=== PATIENT | female | born 1980 | race American Indian/Alaskan Native ===

== ENCOUNTER 2017-02-15 11:31 | Emergency (ER) | payer SELFPAY ==
[2017-02-15 11:43] VITALS: BP 133/81
== END 2017-02-15 16:05 | disposition left against medical advice (07) ==
LOC: ED 11:31
DX: R51 Headache (principal); Z53.21 Procedure and treatment not carried out due to patient leaving prior to being seen by health care provider

== ENCOUNTER 2017-05-18 10:59 | Emergency (ER) | payer MEDICAID ==
--- NOTE | 2017-05-18 11:14 | Emergency Department Report ---
Chief Complaint: Urogenital-Female Stated Complaint: TUBAL/NOW POSITIVE PREG TEST Time Seen by Provider: 05/18/17 11:11 - HPI History of Present Illness: PT states she has had tubal ligation. PT states she has not had cycle since March. PT took a positive home test. - ROS Review of Systems: - abd pain - vaginal bleeding - Exam Physical Exam: pt looks well, non toxic. no acute distress in triage. MSE screening note: Focused history and physical exam performed. Due to findings the following was ordered: labs and us ED Disposition for MSE Condition: Stable
[2017-05-18 11:48] LABS: Basophils % (Auto) 1.1 % (0.0-1.8); Eosinophils % (Auto) 1.6 % (0.0-4.3); Hematocrit 36.9 % (30.3-42.9); Hemoglobin 11.8 gm/dl (10.1-14.3); Mean Corpuscular HGB Conc 32 % (30-34); Mean Corpuscular Hemoglobin 26 pg (28-32); Mean Corpuscular Volume 81 fl (79-97); Platelet Count 211 K/mm3 (140-440); Red Blood Count 4.54 M/mm3 (3.65-5.03); Red Cell Distribution Width 15.2 % (13.2-15.2); White Blood Count 4.8 K/mm3 (4.5-11.0)
[2017-05-18 11:54] LABS: Alanine Aminotransferase 10 units/L (7-56); Albumin 4.2 g/dL (3.9-5); Albumin/Globulin Ratio 1.2 %; Alkaline Phosphatase 59 units/L (35-129); Anion Gap 15 mmol/L; Blood Urea Nitrogen 6 mg/dL (7-17); Calcium 8.6 mg/dL (8.4-10.2); Carbon Dioxide 26 mmol/L (22-30); Chloride 100.5 mmol/L (98-107); Glucose 119 mg/dL (65-100); Potassium 3.7 mmol/L (3.6-5.0); Sodium 138 mmol/L (137-145); Total Protein 7.6 g/dL (6.3-8.2)
[2017-05-18 12:34] LABS: Bilirubin,Urine NEG (Negative); Blood,Urine NEG (Negative); Ketones,Urine NEG (Negative); Leukocyte Esterase,Urine NEG (Negative); Mucus,Urine 1+ /HPF; Nitrite,Urine NEG (Negative); Protein,Urine <15 mg/dL mg/dL (Negative); RBC,Urine < 1.0 /HPF (0.0-6.0); Urobilinogen,Urine < 2.0 mg/dL (<2.0); WBC,Urine < 1.0 /HPF (0.0-6.0)
--- NOTE | 2017-05-18 15:48 | Ultrasound Report ---
Transabdominal and transvaginal pelvic ultrasound. History: Pelvic pain. The patient's serum hCG at the time of this study a 17.08. The patient has a history of tubal ligation. Findings: The uterus is normal in size and configuration. There is no evidence of intrauterine . The endometrial echo measures 11 mm. There is a 1.5 cm cyst within the right ovary. There is a complex lesion in the left ovary measuring 2 cm in diameter. There is no fluid within the cul-de-sac. Impression: 1. No evidence of IUP. 2. 2 cm diameter complex lesion in the left ovary. 3. 1.5 cm right ovarian cyst.
--- NOTE | 2017-05-18 20:37 | Emergency Department Report ---
ED Female HPI - General Chief complaint: Urogenital-Female Stated complaint: TUBAL/NOW POSITIVE PREG TEST Time Seen by Provider: 05/18/17 11:11 Source: patient Mode of arrival: Ambulatory Limitations: No Limitations - History of Present Illness Initial comments: 36-year-old female past medical history tubal ligation, miscarriages, migraines presents with complaint of possible . Last menstrual period was 2016. Patient gravity history 1 miscarriage last year and currently . Patient denies fevers chills nausea vomiting states that she has had some vaginal spotting since her ultrasound this afternoon in the emergency department. Patient is awake alert and oriented 3 nontoxic appearing. Patient states that she had a positive urine test at home and is concerned that she may be now despite having had a tubal ligation 9 years ago. Patient states she had similar scenario last year where she had a miscarriage after becoming within the first 6 weeks. Patient states she tried to go see her [facility] but they were unavailable this afternoon. Patient states that today she had some intermittent crampiness since the ultrasound but not before that.. Complaint: vaginal discharge, possible STD Are you Now?: Yes Last Menstrual Period: 04/05/17 EDC: 01/10/18 - Related Data Sexually active: Yes : 7 Para: 5 Previous Rx's Medication Instructions Recorded Last Taken Type Acetaminophen/Codeine [Tylenol #3] 1 tab PO Q6H PRN #14 tab 01/11/14 Unknown Rx Ibuprofen [Motrin 800 MG tab] 800 mg PO Q8H PRN #30 tablet 01/11/14 Unknown Rx Cephalexin [Keflex] 500 mg PO QID #28 capsule 01/12/14 Unknown Rx metroNIDAZOLE [Flagyl TAB] 500 mg PO Q12HR #14 tab 05/18/17 Unknown Rx Allergies Allergy/AdvReac Type Severity Reaction Status Date / Time acetaminophen [From Percocet] Allergy Vomiting Verified 01/11/14 15:47 hydrocodone bitartrate Allergy Vomiting Verified 01/11/14 15:47 [From Vicodin] oxycodone HCl [From Percocet] Allergy Vomiting Verified 01/11/14 15:47 ED Review of Systems ROS: Stated complaint: TUBAL/NOW POSITIVE PREG TEST Other details as noted in HPI Constitutional: denies: chills, fever Eyes: denies: eye pain, eye discharge, vision change ENT: denies: ear pain, throat pain Respiratory: denies: cough, shortness of breath, wheezing Cardiovascular: denies: chest pain, palpitations Endocrine: no symptoms reported Gastrointestinal: denies: abdominal pain, nausea, diarrhea Genitourinary: denies: urgency, dysuria, discharge Musculoskeletal: denies: back pain, joint swelling, arthralgia Skin: denies: rash, lesions Neurological: denies: headache, weakness, paresthesias Psychiatric: denies: anxiety, depression Hematological/Lymphatic: denies: easy bleeding, easy bruising ED Past Medical Hx - Past Medical History Hx Headaches / Migraines: Yes (migraines) Hx Psychiatric Treatment: Yes (anxiety) Additional medical history: right ovarian cyst, scoliosis - Surgical History Additional Surgical History: tubal ligation, lump removed from left breast - Social History Smoking Status: Never Smoker Substance Use Type: None - Medications Home Medications: Home Medications Medication Instructions Recorded Confirmed Last Taken Type Acetaminophen/Codeine [Tylenol #3] 1 tab PO Q6H PRN #14 tab 01/11/14 Unknown Rx Ibuprofen [Motrin 800 MG tab] 800 mg PO Q8H PRN #30 tablet 01/11/14 Unknown Rx Cephalexin [Keflex] 500 mg PO QID #28 capsule 01/12/14 Unknown Rx metroNIDAZOLE [Flagyl TAB] 500 mg PO Q12HR #14 tab 05/18/17 Unknown Rx ED Physical Exam - General Limitations: No Limitations General appearance: alert, in no apparent distress - Head Head exam: Present: atraumatic, normocephalic - Eye Eye exam: Present: normal appearance, PERRL, EOMI - ENT ENT exam: Present: mucous membranes moist - Neck Neck exam: Present: normal inspection - Respiratory Respiratory exam: Present: normal lung sounds bilaterally. Absent: respiratory distress - Cardiovascular Cardiovascular Exam: Present: regular rate, normal rhythm. Absent: systolic murmur, diastolic murmur, rubs, gallop - GI/Abdominal GI/Abdominal exam: Present: soft (abdomen soft nontender nondistended all 4 quadrants and suprapubic), normal bowel sounds - External exam: Present: normal external exam Speculum exam: Present: vaginal bleeding Bi-manual exam: Present: normal bi-manual exam - Extremities Exam Extremities exam: Present: normal inspection - Back Exam Back exam: Present: normal inspection - Neurological Exam Neurological exam: Present: alert, oriented X3 - Psychiatric Psychiatric exam: Present: normal affect, normal mood - Skin Skin exam: Present: warm, dry, intact, normal color. Absent: rash ED Course Vital Signs 05/18/17 11:07 Temperature 98 F Pulse Rate 84 Respiratory 18 Rate Blood Pressure 124/72 O2 Sat by Pulse 100 Oximetry ED Medical Decision Making - Lab Data Result diagrams: 05/18/17 11:16 05/18/17 11:16 - Medical Decision Making A/P: Early versus early ectopic 1-ultrasound shows right-sided ovarian cyst but no ectopic , no overt masses 2-labs unremarkable pelvic exam shows some vaginal spotting but no significant pain on manual exam 3-scars to with [facility] [employer] superintendent Dr. Madelyn Rodríguez. Dr. Sam Vicente's colleague. As per Dr. Rodríguez I will give patient ectopic precautions and refer her back to clinic for repeat ultrasound and hCG in 48 hours. I informed the patient of this plan and she agreed to follow up in clinic or to return to the ED if necessary for repeat ultrasound in 48-72 hours. I advised patient that should she begin to experience vaginal hemorrhage severe abdominal pain fevers and chills or severe nausea and vomiting to return to the emergency room immediately as this may represent a clinical ectopic . Patient stated she understood my instructions clearly. her spouse was present for conversation. 4-discussed the case with Dr. Ruiz before discharge 5- pt advised to engage in pelvic rest, will tx empirically for BV and wet prep is + Critical care attestation.: If time is entered above; I have spent that time in minutes in the direct care of this critically ill patient, excluding procedure time. ED Disposition Clinical Impression: Qualifiers: Weeks of gestation: less than 8 weeks Qualified Code(s): Z3A.01 - Less than 8 weeks gestation of Disposition: -01 TO HOME OR SELFCARE Is pt being admited?: No Does the pt Need Aspirin: No Condition: Stable Instructions: Ectopic (ED), Spontaneous Miscarriage (ED), Threatened Miscarriage (ED), (ED) Prescriptions: metroNIDAZOLE [Flagyl TAB] 500 mg PO Q12HR #14 tab Referrals: DANIEL NICHOLAS MD [Staff Physician] - 3-5 Days [facility] [Provider Group] - 3-5 Days Forms: Accompanied Note, Work/School Release Form(ED)
[2017-05-18 21:49] VITALS: BP 128/82
== END 2017-05-18 21:48 | disposition home or self-care (01) ==
LOC: ED 10:59
DX: O26.891 Other specified pregnancy related conditions, first trimester (principal); N89.8 Other specified noninflammatory disorders of vagina; Z3A.01 Less than 8 weeks gestation of pregnancy; G43.909 Migraine, unspecified, not intractable, without status migrainosus; F41.9 Anxiety disorder, unspecified; Z88.8 Allergy status to other drugs, medicaments and biological substances; N83.201 Unspecified ovarian cyst, right side
CPT/HCPCS: 36415; 76801; 76817; 80053; 81001; 84702; 85025; 86900; 86901; 87210; 87591

== ENCOUNTER 2017-05-19 10:18 | Emergency (ER) | payer MEDICAID ==
[2017-05-19 11:50] LABS: Basophils % (Auto) 1.2 % (0.0-1.8); Hematocrit 37.7 % (30.3-42.9); Hemoglobin 12.2 gm/dl (10.1-14.3); Mean Corpuscular HGB Conc 32 % (30-34); Mean Corpuscular Hemoglobin 26 pg (28-32); Mean Corpuscular Volume 81 fl (79-97); Platelet Count 216 K/mm3 (140-440); Red Blood Count 4.64 M/mm3 (3.65-5.03); Red Cell Distribution Width 14.9 % (13.2-15.2); White Blood Count 7.4 K/mm3 (4.5-11.0)
[2017-05-19 12:28] LABS: Alanine Aminotransferase 10 units/L (7-56); Albumin 4.5 g/dL (3.9-5); Albumin/Globulin Ratio 1.2 %; Alkaline Phosphatase 67 units/L (35-129); Anion Gap 17 mmol/L; Blood Urea Nitrogen 7 mg/dL (7-17); Carbon Dioxide 27 mmol/L (22-30); Glucose 90 mg/dL (65-100); Lipase 36 units/L (13-60); Potassium 3.7 mmol/L (3.6-5.0); Sodium 140 mmol/L (137-145); Total Protein 8.3 g/dL (6.3-8.2)
[2017-05-19] MEDS ORDERED: TYLENOL ONE (12:59)
[2017-05-19] MEDS ORDERED: TYLENOL PO ONE (13:00)
[2017-05-19 13:43] LABS: Bilirubin,Urine NEG (Negative); Blood,Urine LG (Negative); Ketones,Urine NEG (Negative); Leukocyte Esterase,Urine TR (Negative); Mucus,Urine 3+ /HPF; Nitrite,Urine NEG (Negative)
--- NOTE | 2017-05-19 22:53 | Emergency Department Report ---
ED Female HPI - General Chief complaint: Abdominal Pain Stated complaint: MISCARRIAGE/SEEN HERE YESTERDAY Time Seen by Provider: 05/19/17 22:32 Source: patient Mode of arrival: Ambulatory Limitations: No Limitations - History of Present Illness Initial comments: 36 years old female history of tubal ligation, second visit to the ER for vaginal bleeding and abdominal pain. She has hCG was 17.8 yesterday today is 8. Ultrasound was done yesterday which did not show any intrauterine or evidence of ectopic . Patient stated her vaginal bleeding get more worse today with abdominal pain. Patient did have history of ectopic last year with the same presentation: Patient treated at [place] with methotrexate. MD Complaint: vaginal bleeding -: Gradual Quality: cramping Associated Symptoms: vaginal bleeding, abdominal pain. denies: nausea/vomiting - Related Data Sexually active: Yes Previous Rx's Medication Instructions Recorded Last Taken Type Acetaminophen/Codeine [Tylenol #3] 1 tab PO Q6H PRN #14 tab 01/11/14 Unknown Rx Ibuprofen [Motrin 800 MG tab] 800 mg PO Q8H PRN #30 tablet 01/11/14 Unknown Rx Cephalexin [Keflex] 500 mg PO QID #28 capsule 01/12/14 Unknown Rx metroNIDAZOLE [Flagyl TAB] 500 mg PO Q12HR #14 tab 05/18/17 Unknown Rx Acetaminophen/Codeine [Tylenol 1 tab PO Q6H PRN #14 tab 05/19/17 Unknown Rx /Codeine # 3 tab] Ondansetron [Zofran Odt] 4 mg PO Q8HR PRN #14 tab.rapdis 05/19/17 Unknown Rx Allergies Allergy/AdvReac Type Severity Reaction Status Date / Time acetaminophen [From Percocet] Allergy Vomiting Verified 01/11/14 15:47 hydrocodone bitartrate Allergy Vomiting Verified 01/11/14 15:47 [From Vicodin] oxycodone HCl [From Percocet] Allergy Vomiting Verified 01/11/14 15:47 ED Review of Systems ROS: Stated complaint: MISCARRIAGE/SEEN HERE YESTERDAY Other details as noted in HPI Comment: All other systems reviewed and negative Constitutional: denies: chills, fever Respiratory: denies: cough, shortness of breath, SOB with exertion Gastrointestinal: abdominal pain. denies: nausea, vomiting, diarrhea, constipation, hematemesis, hematochezia Genitourinary: denies: urgency, dysuria, frequency, hematuria Skin: denies: rash Neurological: denies: headache, weakness, numbness ED Past Medical Hx - Past Medical History Previous Medical History?: Yes Hx Headaches / Migraines: Yes (migraines) Hx Psychiatric Treatment: Yes (anxiety) Additional medical history: right ovarian cyst, scoliosis - Surgical History Past Surgical History?: Yes Additional Surgical History: tubal ligation, lump removed from left breast - Social History Smoking Status: Never Smoker Substance Use Type: None - Medications Home Medications: Home Medications Medication Instructions Recorded Confirmed Last Taken Type Acetaminophen/Codeine [Tylenol #3] 1 tab PO Q6H PRN #14 tab 01/11/14 Unknown Rx Ibuprofen [Motrin 800 MG tab] 800 mg PO Q8H PRN #30 tablet 01/11/14 Unknown Rx Cephalexin [Keflex] 500 mg PO QID #28 capsule 01/12/14 Unknown Rx metroNIDAZOLE [Flagyl TAB] 500 mg PO Q12HR #14 tab 05/18/17 Unknown Rx Acetaminophen/Codeine [Tylenol 1 tab PO Q6H PRN #14 tab 05/19/17 Unknown Rx /Codeine # 3 tab] Ondansetron [Zofran Odt] 4 mg PO Q8HR PRN #14 tab.rapdis 05/19/17 Unknown Rx ED Physical Exam - General Limitations: No Limitations General appearance: alert, in no apparent distress - Eye Eye exam: Present: normal appearance - ENT ENT exam: Present: normal exam - Neck Neck exam: Present: normal inspection - Respiratory Respiratory exam: Present: normal lung sounds bilaterally. Absent: respiratory distress, wheezes, rales, chest wall tenderness - Cardiovascular Cardiovascular Exam: Present: regular rate, normal rhythm, normal heart sounds - GI/Abdominal GI/Abdominal exam: Present: soft, tenderness. Absent: guarding, rebound, rigid , normal bowel sounds, mass, bruit, pulsatile mass - Back Exam Back exam: Present: normal inspection. Absent: CVA tenderness (R), CVA tenderness (L) - Neurological Exam Neurological exam: Present: alert, oriented X3, CN II-XII intact - Skin Skin exam: Present: warm, normal color ED Course Vital Signs 05/19/17 11:24 Temperature 98.3 F Pulse Rate 82 Respiratory 18 Rate Blood Pressure 136/72 O2 Sat by Pulse 100 Oximetry - Reevaluation(s) Reevaluation #1: 05/19/17 23:[address] Vicente will be and gynecology and followed by the patient she stated that the patient does not need methotrexate now patient can be discharged home and to follow-up with her in the clinic on Wednesday morning. Patient agreed with plan. ED Medical Decision Making - Lab Data Result diagrams: 05/19/17 11:36 05/19/17 11:36 Critical care attestation.: If time is entered above; I have spent that time in minutes in the direct care of this critically ill patient, excluding procedure time. ED Disposition Clinical Impression: Abnormal vaginal bleeding Disposition: DC- TO HOME OR SELFCARE Is pt being admited?: No Condition: Stable Instructions: Abdominal Pain (ED) Additional Instructions: Follow-up is Dr. Vicente on Wednesday morning Referrals: PRIMARY MD CHON [Primary Care Provider] - 3-5 Days DANIEL NICHOLAS MD [Staff Physician] - 3-5 Days
[2017-05-19] MEDS ORDERED: TYLENOL #3 PO ONE (23:21)
[2017-05-19 23:34] VITALS: BP 139/68
== END 2017-05-19 23:34 | disposition home or self-care (01) ==
LOC: ED 10:18
DX: N93.9 Abnormal uterine and vaginal bleeding, unspecified (principal); G43.909 Migraine, unspecified, not intractable, without status migrainosus; F41.9 Anxiety disorder, unspecified; Z88.8 Allergy status to other drugs, medicaments and biological substances
CPT/HCPCS: 36415; 80053; 81001; 83690; 84702; 84703; 85025; 99283

== ENCOUNTER 2017-12-23 08:29 | Emergency (ER) | payer SELFPAY ==
[2017-12-23 10:59] VITALS: BP 122/75
[2017-12-23] MEDS ORDERED: TORADOL IM ONE (11:13)
--- NOTE | 2017-12-23 11:30 | Emergency Department Report ---
HPI - General Chief Complaint: Extremity Injury, Lower Time Seen by Provider: 12/23/17 11:12 - HPI HPI: Pt is a 29-year-old female with no prior medical history who presents to ED complaining of left knee pain status post fall yesterday afternoon. She states that she was trying to move a dresser when she slipped and slid down and landed on her left knee. Patient states that she does have some left knee pain. She describes them as throbbing and achy and localized to the knee. She reports pain at 8 out of 10 intensity. She denies any breaks in the skin, hit her head, loss of consciousness after fall. ED Past Medical Hx - Past Medical History Hx Headaches / Migraines: Yes (migraines) Hx Psychiatric Treatment: Yes (anxiety) Additional medical history: right ovarian cyst, scoliosis - Surgical History Additional Surgical History: tubal ligation, lump removed from left breast - Social History Smoking Status: Never Smoker - Medications Home Medications: Home Medications Medication Instructions Recorded Confirmed Last Taken Type Acetaminophen/Codeine [Tylenol #3] 1 tab PO Q6H PRN #14 tab 01/11/14 Unknown Rx Ibuprofen [Motrin 800 MG tab] 800 mg PO Q8H PRN #30 tablet 01/11/14 Unknown Rx Cephalexin [Keflex] 500 mg PO QID #28 capsule 01/12/14 Unknown Rx metroNIDAZOLE [Flagyl TAB] 500 mg PO Q12HR #14 tab 05/18/17 Unknown Rx Acetaminophen/Codeine [Tylenol 1 tab PO Q6H PRN #14 tab 05/19/17 Unknown Rx /Codeine # 3 tab] Ondansetron [Zofran Odt] 4 mg PO Q8HR PRN #14 tab.rapdis 05/19/17 Unknown Rx Cyclobenzaprine [Flexeril] 10 mg PO QHS PRN #24 tablet 12/23/17 Unknown Rx Ibuprofen [Motrin] 800 mg PO Q8HR PRN #30 tablet 12/23/17 Unknown Rx ED Review of Systems ROS: Stated complaint: KNEE INJURY/FALL Other details as noted in HPI Constitutional: denies: chills, fever Eyes: denies: eye pain, eye discharge, vision change ENT: denies: ear pain, throat pain Respiratory: denies: cough, shortness of breath, wheezing Cardiovascular: denies: chest pain, palpitations Endocrine: no symptoms reported Gastrointestinal: denies: abdominal pain, nausea, diarrhea Genitourinary: denies: urgency, dysuria, discharge Musculoskeletal: denies: back pain, joint swelling, arthralgia Skin: denies: rash, lesions Neurological: denies: headache, weakness, paresthesias Psychiatric: denies: anxiety, depression Hematological/Lymphatic: denies: easy bleeding, easy bruising Physical Exam - Physical Exam Vital Signs: Vital Signs 12/23/17 12/23/17 08:51 10:35 Temperature 98.5 F 98.7 F Pulse Rate 74 77 Respiratory 16 16 Rate Blood Pressure 123/69 Blood Pressure 122/75 [Left] O2 Sat by Pulse 99 100 Oximetry Physical Exam: GENERAL: Alert and oriented x3, no apparent distress, Normal Gait, atraumatic. HEAD: Head is normocephalic and a-traumatic. . NECK: Supple. Non edematous,. No lymphadenopathy or thyromegaly. No C-spine tenderness LUNGS: Symetrical with respiration, No wheezing, no rales or crackles, CTAB. HEART: S1, S2 present, regular rate and rhythm without murmur, no rubs, no gallops. Non tender to palpation BACK: Full range of motion, no spinal tenderness, nontender to palpation. EXTREMITIES/MUSCULOSKELETAL: No cyanosis, clubbing, rash, lesions or edema. Full ROM bilaterally. UE/LE Pulses 2+ bilaterally. LE and UE 5+ strength bilaterally, left knee tenderness to palpation on the anterior aspect, no swelling noted, no lesions no ecchymoses. Mild pain with Flexion of the knee NEUROLOGIC: The patient is cooperative with no focal neurologic deficits.Normal speech. Normal sensation in bilateral upper and lower extremities, No loss of sensation, SKIN: Warm and dry, No lesions, No ulceration or induration present. ED Course Vital Signs 12/23/17 12/23/17 08:51 10:35 Temperature 98.5 F 98.7 F Pulse Rate 74 77 Respiratory 16 16 Rate Blood Pressure 123/69 Blood Pressure 122/75 [Left] O2 Sat by Pulse 99 100 Oximetry ED Medical Decision Making - Radiology Data Radiology results: report reviewed, image reviewed Fluoro Time In Minutes: LEFT KNEE RADIOGRAPHS INDICATION: Left knee pain, status post fall. COMPARISON: None similar. FINDINGS: AP, lateral and oblique left knee radiographs demonstrate intact bony articulation and appearance. Normal soft tissues without evidence of suprapatellar effusion. CONCLUSION: Normal left knee radiographs. Thank you for the opportunity to participate in this patient's care. Transcribed By: RS Dictated By: SCOTT GARCIA MD Electronically Authenticated By: SCOTT GARCIA MD Signed Date/Time: 12/23/17 1126 - Medical Decision Making 37-year-old female presents to ED with knee pain status post fall ED course: Patient received Toradol in ED. Vital signs are normal patient is in no acute distress Discussed with patient follow-up with primary care physician. Discussed the patient and take medications as prescribed. Patient has no neurological deficit. Patient is alert and oriented 3 and understands all instructions given. Discussed drowsiness effect of Flexeril makes her drowsy and not to operate machinery while taking flexeril Critical care attestation.: If time is entered above; I have spent that time in minutes in the direct care of this critically ill patient, excluding procedure time. ED Disposition Clinical Impression: Fall (on) (from) other stairs and steps, initial encounter Left knee sprain Qualifiers: Encounter type: initial encounter Involved ligament of knee: other ligament Qualified Code(s): S83.8X2A - Sprain of other specified parts of left knee, initial encounter Disposition: DC- TO HOME OR SELFCARE Is pt being admited?: No Does the pt Need Aspirin: No Condition: Stable Instructions: Knee Pain (ED), Arthralgia (ED), Knee Exercises (GEN) Additional Instructions: Make sure to follow up with the primary care physician as discussed. Take all your medications as you've been prescribed. If you have any worsening symptoms or develop new symptoms please return to ED immediately. Prescriptions: Cyclobenzaprine [Flexeril] 10 mg PO QHS PRN #24 tablet PRN Reason: Muscle Spasm Ibuprofen [Motrin] 800 mg PO Q8HR PRN #30 tablet PRN Reason: Pain Referrals: JACQUIE GARCIA MD [Primary Care Provider] - 3-5 Days Forms: Work/School Release Form(ED) Time of Disposition: 11:44
== END 2017-12-23 12:02 | disposition home or self-care (01) ==
LOC: ED 08:29
DX: S83.8X2A Sprain of other specified parts of left knee, initial encounter (principal); W10.9XXA Fall (on) (from) unspecified stairs and steps, initial encounter; Y93.89 Activity, other specified; Y92.89 Other specified places as the place of occurrence of the external cause; Y99.8 Other external cause status
CPT/HCPCS: 73562; 96372; 99283; J1885

== ENCOUNTER 2018-01-05 16:42 | Emergency (ER) | payer SELFPAY ==
[2018-01-05 16:59] VITALS: BP 124/84
--- NOTE | 2018-01-05 19:26 | Emergency Department Report ---
Minor Respiratory - HPI Chief Complaint: Upper Respiratory Infection Stated Complaint: COUGH/CONGESTION/CP Time Seen by Provider: 01/05/18 19:17 Duration: 3 weeks Pain Location: Chest Minor Respiratory: Yes Rhinorrhea, Yes Able to Tolerate Fluids, Yes Cough ( patient began 3 weeks ago with a mild cough that she attributed to the pollen however this is persisted for the last 3 weeks and now she has green sputum and discomfort when she coughs and when she breathes.), Yes Chest Pain, Yes Shortness of Breath, No Sore Throat, No Ear Pain, No Sick Contacts, No Hemoptysis, No Fever ED Review of Systems ROS: Stated complaint: COUGH/CONGESTION/CP Other details as noted in HPI Comment: All other systems reviewed and negative ED Past Medical Hx - Past Medical History Previous Medical History?: Yes Hx Headaches / Migraines: Yes (migraines) Hx Psychiatric Treatment: Yes (anxiety) Additional medical history: right ovarian cyst, scoliosis, seasonal allergies - Surgical History Past Surgical History?: Yes Additional Surgical History: tubal ligation, lump removed from left breast, Had a tubaligation and report had 2 miscarriages 1nd 12-01-2015 since having a tubaligation - Social History Smoking Status: Never Smoker Substance Use Type: Alcohol, Non Opiate Pain - Medications Home Medications: Home Medications Medication Instructions Recorded Confirmed Last Taken Type Acetaminophen/Codeine [Tylenol #3] 1 tab PO Q6H PRN #14 tab 01/11/14 Unknown Rx Ibuprofen [Motrin 800 MG tab] 800 mg PO Q8H PRN #30 tablet 01/11/14 Unknown Rx Cephalexin [Keflex] 500 mg PO QID #28 capsule 01/12/14 Unknown Rx metroNIDAZOLE [Flagyl TAB] 500 mg PO Q12HR #14 tab 05/18/17 Unknown Rx Acetaminophen/Codeine [Tylenol 1 tab PO Q6H PRN #14 tab 05/19/17 Unknown Rx /Codeine # 3 tab] Ondansetron [Zofran Odt] 4 mg PO Q8HR PRN #14 tab.rapdis 05/19/17 Unknown Rx Cyclobenzaprine [Flexeril] 10 mg PO QHS PRN #24 tablet 12/23/17 Unknown Rx ALBUTEROL Inhaler [ProAir HFA 2 puff IH QID PRN #1 inhalation 01/05/18 Unknown Rx Inhaler] Amoxicillin 500 mg PO TID #21 capsule 01/05/18 Unknown Rx Ibuprofen [Motrin 800 MG tab] 800 mg PO Q8HR PRN #20 tablet 01/05/18 Unknown Rx predniSONE [Deltasone] 20 mg PO QDAY #5 tab 01/05/18 Unknown Rx Minor Respiratory Exam - Exam General: Vital signs noted. No distress. Alert and acting appropriately. HEENT: Yes Moist Mucous Membranes, No Pharyngeal Erythema, No Pharyngeal Exudates, No Rhinorrhea, No Conjuctival Injection, No Frontal Tenderness, No Maxillary Tenderness Ear: Neither TM Bulge, Neither TM Erythema, Neither EAC Pain, Neither EAC Discharge Neck: Yes Supple, No Adenopathy Lungs: Yes Good Air Exchange, Yes Ronchi (scattered rhonchi that clear with deep breathing), Yes Cough, No Wheezes, No Stridor, No Labored Respirations, No Retractions, No Use of Accessory Muscles, No Other Abnormal Lung Sounds Heart: Yes Regular, No Murmur Abdomen: Yes Normal Bowel Sounds, No Tenderness, No Peritoneal Signs Skin: No Rash, No Edema Neurologic: Alert and oriented, no deficits. Musculoskeletal: Unremarkable. ED Course Vital Signs 01/05/18 16:54 Temperature 98.7 F Pulse Rate 81 Respiratory 20 Rate Blood Pressure 124/84 O2 Sat by Pulse 100 Oximetry Critical care attestation.: If time is entered above; I have spent that time in minutes in the direct care of this critically ill patient, excluding procedure time. ED Disposition Clinical Impression: Acute bronchitis Qualifiers: Bronchitis organism: unspecified organism Qualified Code(s): J20.9 - Acute bronchitis, unspecified Disposition: DC- TO HOME OR SELFCARE Is pt being admited?: No Does the pt Need Aspirin: No Condition: Stable Instructions: Acute Bronchitis (ED) Prescriptions: ALBUTEROL Inhaler [ProAir HFA Inhaler] 2 puff IH QID PRN #1 inhalation PRN Reason: Shortness Of Breath Amoxicillin 500 mg PO TID #21 capsule Ibuprofen [Motrin 800 MG tab] 800 mg PO Q8HR PRN #20 tablet PRN Reason: Pain predniSONE [Deltasone] 20 mg PO QDAY #5 tab Referrals: PRIMARY CARE, [Primary Care Provider] - 3-5 Days
== END 2018-01-05 19:30 | disposition home or self-care (01) ==
LOC: ED 16:42
DX: J20.9 Acute bronchitis, unspecified (principal); G43.909 Migraine, unspecified, not intractable, without status migrainosus
CPT/HCPCS: 99282

== ENCOUNTER 2018-10-20 14:30 | Inpatient (IN) | payer MEDICAID ==
[2018-10-20] MEDS ORDERED: ZOFRAN IV ONE (14:47)
[2018-10-20] MEDS ORDERED: NACL 0.9% 1000 ML 1,000 ML IV ONE ×2 (14:47→19:47)
--- NOTE | 2018-10-20 14:47 | Emergency Department Report ---
Blank Doc - Documentation Documentation: 37-year-old female that presents with nausea vomiting and abdominal pain x2 da ys. Patient stated had a syncopal episode this morning when going to the bathroom. Patient also stated some dysuria. Also c/o of dizziness. LMP 09/29/2018. Denies any radiation of pain. V/S stable Lower abdominal tenderness Neuro exam normal A/O x3 Will ordered labs, EKG, and CT scan Sent to [facility] for further evaluation and treatment
[2018-10-20 15:13] LABS: Basophils # (Auto) 0.1 K/mm3 (0.0-0.1); Basophils % (Auto) 0.8 % (0.0-1.8); Eosinophils # (Auto) 0.1 K/mm3 (0.0-0.4); Eosinophils % (Auto) 0.8 % (0.0-4.3); Hemoglobin 10.1 gm/dl (10.1-14.3); Lymphocytes # (Auto) 1.3 K/mm3 (1.2-5.4); Lymphocytes % (Auto) 11.8 % (13.4-35.0); Mean Corpuscular HGB Conc 33 % (30-34); Mean Corpuscular Volume 83 fl (79-97); Monocytes # (Auto) 0.4 K/mm3 (0.0-0.8); Monocytes % (Auto) 3.3 % (0.0-7.3); Platelet Count 203 K/mm3 (140-440); Red Blood Count 3.71 M/mm3 (3.65-5.03); Red Cell Distribution Width 14.7 % (13.2-15.2)
[2018-10-20 15:26] LABS: Bilirubin,Urine NEG (Negative); Blood,Urine MOD (Negative); Color,Urine Yellow (Yellow); Mucus,Urine 3+ /HPF
[2018-10-20 15:32] LABS: Alanine Aminotransferase 13 units/L (7-56); Albumin 3.5 g/dL (3.9-5); BUN/Creatinine Ratio 12; Blood Urea Nitrogen 6 mg/dL (7-17); Calcium 8.2 mg/dL (8.4-10.2); Hemolysis Index 10
--- NOTE | 2018-10-20 17:31 | Emergency Department Report ---
<DARRYL OCASIO - Last Filed: 10/20/18 17:27> ED Abdominal Pain HPI - General Chief Complaint: Syncope Stated Complaint: SYNCOPE Time Seen by Provider: 10/20/18 14:40 Source: patient Mode of arrival: Ambulatory Limitations: No Limitations - History of Present Illness Initial Comments: Patient is a 37-year-old female who is complaining of some lower abdominal discomfort with nausea vomiting last several days. Patient states the past 2 days she's had some cramps in the suprapubic region that are a 6 out of 10. Patient just finished her menses however she is continued to have spotting. This morning patient was intubated and had a dream that she was walking to her bathroom and then felt a thud. Patient then awoke on the ground near her bathroom. Patient may have been sleepwalking and fell. Patient is not sure whether she could've also have had a syncopal episode. Patient states she was tired and very groggy at the time. Patient denies any injury from the fall. Severity scale (0 -10): 5 - Related Data Previous Rx's Medication Instructions Recorded Last Taken Type Acetaminophen/Codeine [Tylenol #3] 1 tab PO Q6H PRN #14 tab 01/11/14 Unknown Rx Ibuprofen [Motrin 800 MG tab] 800 mg PO Q8H PRN #30 tablet 01/11/14 Unknown Rx Cephalexin [Keflex] 500 mg PO QID #28 capsule 01/12/14 Unknown Rx metroNIDAZOLE [Flagyl TAB] 500 mg PO Q12HR #14 tab 05/18/17 Unknown Rx Acetaminophen/Codeine [Tylenol 1 tab PO Q6H PRN #14 tab 05/19/17 Unknown Rx /Codeine # 3 tab] Ondansetron [Zofran Odt] 4 mg PO Q8HR PRN #14 tab.rapdis 05/19/17 Unknown Rx Cyclobenzaprine [Flexeril] 10 mg PO QHS PRN #24 tablet 12/23/17 Unknown Rx ALBUTEROL Inhaler (OR & NICU) 2 puff IH QID PRN #1 inhalation 01/05/18 Unknown Rx [ProAir HFA Inhaler] Amoxicillin 500 mg PO TID #21 capsule 01/05/18 Unknown Rx Ibuprofen [Motrin 800 MG tab] 800 mg PO Q8HR PRN #20 tablet 01/05/18 Unknown Rx predniSONE [Deltasone] 20 mg PO QDAY #5 tab 01/05/18 Unknown Rx Allergies Allergy/AdvReac Type Severity Reaction Status Date / Time acetaminophen [From Percocet] Allergy Vomiting Verified 01/11/14 15:47 hydrocodone bitartrate Allergy Vomiting Verified 01/11/14 15:47 [From Vicodin] oxycodone HCl [From Percocet] Allergy Vomiting Verified 01/11/14 15:47 ED Review of Systems Comment: All other systems reviewed and negative ED Past Medical Hx - Past Medical History Hx Headaches / Migraines: Yes (migraines) Hx Psychiatric Treatment: Yes (anxiety) Additional medical history: right ovarian cyst, scoliosis, seasonal allergies - Surgical History Additional Surgical History: tubal ligation, lump removed from left breast, Had a tubaligation and report had 2 miscarriages 1nd 12-01-2015 since having a tubaligation - Social History Smoking Status: Unknown if ever smoked Substance Use Type: None - Medications Home Medications: Home Medications Medication Instructions Recorded Confirmed Last Taken Type Acetaminophen/Codeine [Tylenol #3] 1 tab PO Q6H PRN #14 tab 01/11/14 Unknown Rx Ibuprofen [Motrin 800 MG tab] 800 mg PO Q8H PRN #30 tablet 01/11/14 Unknown Rx Cephalexin [Keflex] 500 mg PO QID #28 capsule 01/12/14 Unknown Rx metroNIDAZOLE [Flagyl TAB] 500 mg PO Q12HR #14 tab 05/18/17 Unknown Rx Acetaminophen/Codeine [Tylenol 1 tab PO Q6H PRN #14 tab 05/19/17 Unknown Rx /Codeine # 3 tab] Ondansetron [Zofran Odt] 4 mg PO Q8HR PRN #14 tab.rapdis 05/19/17 Unknown Rx Cyclobenzaprine [Flexeril] 10 mg PO QHS PRN #24 tablet 12/23/17 Unknown Rx ALBUTEROL Inhaler (OR & NICU) 2 puff IH QID PRN #1 inhalation 01/05/18 Unknown Rx [ProAir HFA Inhaler] Amoxicillin 500 mg PO TID #21 capsule 01/05/18 Unknown Rx Ibuprofen [Motrin 800 MG tab] 800 mg PO Q8HR PRN #20 tablet 01/05/18 Unknown Rx predniSONE [Deltasone] 20 mg PO QDAY #5 tab 01/05/18 Unknown Rx ED Physical Exam - General Limitations: No Limitations General appearance: alert, in no apparent distress - Head Head exam: Present: atraumatic, normocephalic - Eye Eye exam: Present: normal appearance - ENT ENT exam: Present: mucous membranes moist - Neck Neck exam: Present: normal inspection - Respiratory Respiratory exam: Present: normal lung sounds bilaterally. Absent: respiratory distress, wheezes, rales, rhonchi - Cardiovascular Cardiovascular Exam: Present: regular rate, normal rhythm. Absent: systolic murmur, diastolic murmur, rubs, gallop - GI/Abdominal GI/Abdominal exam: Present: soft, tenderness (suprapubic), normal bowel sounds. Absent: distended, guarding, rebound, rigid - Extremities Exam Extremities exam: Present: normal inspection - Back Exam Back exam: Present: normal inspection - Neurological Exam Neurological exam: Present: alert, oriented X3 - Psychiatric Psychiatric exam: Present: normal affect, normal mood - Skin Skin exam: Present: warm, dry, intact, normal color. Absent: rash ED Course - Reevaluation(s) Reevaluation #1: 10/20/18 17:30 Patient is a 37-year-old female who had either a sleepwalking incident or syncopal episode this morning but is also has some suprapubic discomfort vaginal spotting and nausea vomiting. Patient's has a positive test here. Of concern is that the patient does have a history of tubal ligation and history of ectopic . Patient's pain is suprapubic and does not lateralize. Patients will have an ultrasound and beta Quant ordered. Patient be reassessed. ED Medical Decision Making - Lab Data Result diagrams: 10/20/18 14:55 10/20/18 14:55 Lab Results 10/20/18 10/20/18 10/20/18 Range/Units 14:53 14:55 14:55 WBC 10.8 (4.5-11.0) K/mm3 RBC 3.71 (3.65-5.03) M/mm3 Hgb 10.1 (10.1-14.3) gm/dl Hct 31.0 (30.3-42.9) % MCV 83 (79-97) fl MCH 27 L (28-32) pg MCHC 33 (30-34) % RDW 14.7 (13.2-15.2) % Plt Count 203 (140-440) K/mm3 Lymph % (Auto) 11.8 L (13.4-35.0) % [place] % (Auto) 3.3 (0.0-7.3) % Eos % (Auto) 0.8 (0.0-4.3) % Baso % (Auto) 0.8 (0.0-1.8) % Lymph # 1.3 (1.2-5.4) K/mm3 [place] # 0.4 (0.0-0.8) K/mm3 Eos # 0.1 (0.0-0.4) K/mm3 Baso # 0.1 (0.0-0.1) K/mm3 Seg Neutrophils % 83.3 H (40.0-70.0) % Seg Neutrophils # 9.0 H (1.8-7.7) K/mm3 Sodium (137-145) mmol/L Potassium (3.6-5.0) mmol/L Chloride (98-107) mmol/L Carbon Dioxide (22-30) mmol/L Anion Gap mmol/L BUN (7-17) mg/dL Creatinine (0.7-1.2) mg/dL Estimated GFR ml/min BUN/Creatinine Ratio % Glucose (65-100) mg/dL Calcium (8.4-10.2) mg/dL Total Bilirubin (0.1-1.2) mg/dL AST (5-40) units/L ALT (7-56) units/L Alkaline Phosphatase (35-129) units/L Total Protein (6.3-8.2) g/dL Albumin (3.9-5) g/dL Albumin/Globulin Ratio % Lipase (13-60) units/L HCG, Qual (Negative) HCG, Quant 1081 H (0-4) mIU/mL Urine Color Yellow (Yellow) Urine Turbidity Slightly-cloudy (Clear) Urine pH 5.0 (5.0-7.0) Ur Specific [place] 1.021 (1.003-1.030) Urine Protein 30 mg/dl (Negative) mg/dL Urine Glucose (UA) Neg (Negative) mg/dL Urine Ketones Neg (Negative) mg/dL Urine Blood Mod (Negative) Urine Nitrite Neg (Negative) Urine Bilirubin Neg (Negative) Urine Urobilinogen 2.0 (<2.0) mg/dL Ur Leukocyte Esterase Neg (Negative) Urine WBC (Auto) 4.0 (0.0-6.0) /HPF Urine RBC (Auto) 1.0 (0.0-6.0) /HPF U Epithel Cells (Auto) 20.0 H (0-13.0) /HPF Urine Mucus 3+ /HPF 10/20/18 10/20/18 Range/Units 14:55 14:55 WBC (4.5-11.0) K/mm3 RBC (3.65-5.03) M/mm3 Hgb (10.1-14.3) gm/dl Hct (30.3-42.9) % MCV (79-97) fl MCH (28-32) pg MCHC (30-34) % RDW (13.2-15.2) % Plt Count (140-440) K/mm3 Lymph % (Auto) (13.4-35.0) % [place] % (Auto) (0.0-7.3) % Eos % (Auto) (0.0-4.3) % Baso % (Auto) (0.0-1.8) % Lymph # (1.2-5.4) K/mm3 [place] # (0.0-0.8) K/mm3 Eos # (0.0-0.4) K/mm3 Baso # (0.0-0.1) K/mm3 Seg Neutrophils % (40.0-70.0) % Seg Neutrophils # (1.8-7.7) K/mm3 Sodium 139 (137-145) mmol/L Potassium 3.7 (3.6-5.0) mmol/L Chloride 102.5 (98-107) mmol/L Carbon Dioxide 25 (22-30) mmol/L Anion Gap 15 mmol/L BUN 6 L (7-17) mg/dL Creatinine 0.5 L (0.7-1.2) mg/dL Estimated GFR > 60 ml/min BUN/Creatinine Ratio 12 % Glucose 125 H (65-100) mg/dL Calcium 8.2 L (8.4-10.2) mg/dL Total Bilirubin 0.40 (0.1-1.2) mg/dL AST 21 (5-40) units/L ALT 13 (7-56) units/L Alkaline Phosphatase 64 (35-129) units/L Total Protein 6.2 L (6.3-8.2) g/dL Albumin 3.5 L (3.9-5) g/dL Albumin/Globulin Ratio 1.3 % Lipase 14 (13-60) units/L HCG, Qual Positive (Negative) HCG, Quant (0-4) mIU/mL Urine Color (Yellow) Urine Turbidity (Clear) Urine pH (5.0-7.0) Ur Specific [place] (1.003-1.030) Urine Protein (Negative) mg/dL Urine Glucose (UA) (Negative) mg/dL Urine Ketones (Negative) mg/dL Urine Blood (Negative) Urine Nitrite (Negative) Urine Bilirubin (Negative) Urine Urobilinogen (<2.0) mg/dL Ur Leukocyte Esterase (Negative) Urine WBC (Auto) (0.0-6.0) /HPF Urine RBC (Auto) (0.0-6.0) /HPF U Epithel Cells (Auto) (0-13.0) /HPF Urine Mucus /HPF ED Disposition Clinical Impression: Ectopic Qualifiers: Location of ectopic : unspecified location Intrauterine status: unspecified Qualified Code(s): O00.90 - Unspecified ectopic without intrauterine Disposition: -09 OP ADMIT IP TO THIS HOSP Condition: Stable <DEMETRA RAMOS - Last Filed: 10/20/18 20:22> ED Review of Systems ROS: Stated complaint: SYNCOPE Other details as noted in HPI ED Course Vital Signs 10/20/18 10/20/18 10/20/18 14:41 19:51 19:53 Temperature 97.3 F L 97.8 F Pulse Rate 95 H 97 H Respiratory 18 18 18 Rate Blood Pressure 110/52 Blood Pressure 89/32 [Left] O2 Sat by Pulse 100 100 100 Oximetry - Consultations Consultation #1: 10/20/18 19:54 Patient has been consulted with Dr. Gomez (OBGYN) about patient history, physical exam, and labs/US report for possible ectopic and will come to assess patient for possible surgery. ED Medical Decision Making - Lab Data Result diagrams: 10/20/18 14:55 10/20/18 14:55 - Medical Decision Making This is a 37-year-old female that presents with ectopic . Patient is stable and was examined by me and Dr. Ocasio. Patient was consulted with Dr. Gomez for admission. Labs obtained. Ultrasound obtained. Patient is currently stable. Patient put on nothing by mouth. EKG normal sinus rhythm. At time of admission, the patient does not seem toxic or ill in appearance. No acute signs of distress noted. Patient agrees to admission treatment plan of care. No further questions noted by the patient. Critical care attestation.: If time is entered above; I have spent that time in minutes in the direct care of this critically ill patient, excluding procedure time. ED Disposition Is pt being admited?: Yes
--- NOTE | 2018-10-20 18:13 | Ultrasound Report ---
FINAL REPORT EXAM: TRANSVAGINAL US OBSTETRIC HISTORY: pelvic pain; tubal ligation 2008;preg TECHNIQUE: Ultrasound pelvis transvaginal PRIORS: None. FINDINGS: The uterus measures 7.3 x 4.3 x 4.4 centimeters no gestational sac identified within the uterus. No f ocal myometrial abnormality seen right ovary is 3.8 x 2.9 x 4.8 centimeters. No abnormal adnexal mass identified. Few small cysts noted within the ovary. Left ovary is less well seen and there is questi on of adnexal mass versus ovarian tissue There is free fluid seen at the adnexal bilaterally as well as within right upper and left upper quad rants of the abdomen.. IMPRESSION: No intrauterine gestation identified Question of left adnexal mass. Ascites seen within the abdomen and pelvis. Findings are not definitiv e however concerning for possible ectopic . Continued followup recommended.
--- NOTE | 2018-10-20 18:13 | Ultrasound Report ---
FINAL REPORT EXAM: OB US < 14 WKS SINGLE FETUS HISTORY: pelvic pain;tubal ligation in 2008;preg TECHNIQUE: PRIORS: None. FINDINGS: The uterus measures 7.3 x 4.3 x 4.4 centimeters no gestational sac identified within the uterus. No f ocal myometrial abnormality seen right ovary is 3.8 x 2.9 x 4.8 centimeters. No abnormal adnexal mass identified. Few small cysts noted within the ovary. Left ovary is less well seen and there is questi on of adnexal mass versus ovarian tissue There is free fluid seen at the adnexal bilaterally as well as within right upper and left upper quad rants of the abdomen.. IMPRESSION: No intrauterine gestation identified Question of left adnexal mass. Ascites seen within the abdomen and pelvis. Findings are not definitiv e however concerning for possible ectopic . Continued followup recommended
[2018-10-20] MEDS ORDERED: REGLAN IV ONE (19:15)
[2018-10-20] MEDS ORDERED: MORPHINE ONE (19:51)
[2018-10-20] MEDS ORDERED: NACL 0.9% 1000 ML 1,000 ML ONE (19:51)
[2018-10-20] MEDS: MORPHINE IV ONE ×2 (19:59→21:14)
[2018-10-20] MEDS ORDERED: MARCAINE 0.5% INFILTRATI ONE (20:40)
--- NOTE | 2018-10-20 21:36 | History and Physical Report ---
History of Present Illness Date of examination: 10/20/18 Date of admission: 10/20/18 Chief complaint: Lower abdominal pain, positive test. History of present illness: Patient is a 37 year old , LMP 10/03/18 who presented to the ER complaining of having left lower abdominal pain which started 3 days ago then worsened today and became diffuse. She also had nausea and vomiting. She denies any fever, SOB, palpitation or chest pain. She has a history of laparoscopic tubal sterilization and has had 2 SABs afterward. 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 Family/Genetic History: none Social history: no significant social history Medications and Allergies Allergies Allergy/AdvReac Type Severity Reaction Status Date / Time hydrocodone bitartrate Allergy Vomiting Verified 01/11/14 15:47 [From Vicodin] oxycodone HCl [From Percocet] Allergy Vomiting Verified 01/11/14 15:47 Home Medications Medication Instructions Recorded Confirmed Last Taken Type Acetaminophen/Codeine [Tylenol #3] 1 tab PO Q6H PRN #14 tab 01/11/14 Unknown Rx Ibuprofen [Motrin 800 MG tab] 800 mg PO Q8H PRN #30 tablet 01/11/14 Unknown Rx Cephalexin [Keflex] 500 mg PO QID #28 capsule 01/12/14 Unknown Rx metroNIDAZOLE [Flagyl TAB] 500 mg PO Q12HR #14 tab 05/18/17 Unknown Rx Acetaminophen/Codeine [Tylenol 1 tab PO Q6H PRN #14 tab 05/19/17 Unknown Rx /Codeine # 3 tab] Ondansetron [Zofran Odt] 4 mg PO Q8HR PRN #14 tab.rapdis 05/19/17 Unknown Rx Cyclobenzaprine [Flexeril] 10 mg PO QHS PRN #24 tablet 12/23/17 Unknown Rx ALBUTEROL Inhaler (OR & NICU) 2 puff IH QID PRN #1 inhalation 01/05/18 Unknown Rx [ProAir HFA Inhaler] Amoxicillin 500 mg PO TID #21 capsule 01/05/18 Unknown Rx Ibuprofen [Motrin 800 MG tab] 800 mg PO Q8HR PRN #20 tablet 01/05/18 Unknown Rx predniSONE [Deltasone] 20 mg PO QDAY #5 tab 01/05/18 Unknown Rx - Vital Signs Vital signs: Vital Signs Temp Pulse Resp BP Pulse Ox 97.3 F L 95 H 18 110/52 100 10/20/18 14:41 10/20/18 14:41 10/20/18 14:41 10/20/18 14:41 10/20/18 14:41 Temp Pulse Resp BP Pulse Ox 98.1 F 87 16 118/77 100 10/20/18 21:20 10/20/18 21:20 10/20/18 21:20 10/20/18 21:20 10/20/18 21:20 - Physical Exam Cardiovascular: Normal S1, Normal S2 Lungs: Positive: Clear to auscultation Vulva: both: normal Cervix: Positive: other (Closed, long, posterior, +++CMT, spotting.) Adnexa: both: tenderness Results Result Diagrams: 10/20/18 14:55 10/20/18 14:55 Abnormal lab results 10/20/18 10/20/18 10/20/18 Range/Units 14:53 14:55 14:55 MCH 27 L (28-32) pg Lymph % (Auto) 11.8 L (13.4-35.0) % Seg Neutrophils % 83.3 H (40.0-70.0) % Seg Neutrophils # 9.0 H (1.8-7.7) K/mm3 BUN (7-17) mg/dL Creatinine (0.7-1.2) mg/dL Glucose (65-100) mg/dL Calcium (8.4-10.2) mg/dL Total Protein (6.3-8.2) g/dL Albumin (3.9-5) g/dL HCG, Quant 1081 H (0-4) mIU/mL U Epithel Cells (Auto) 20.0 H (0-13.0) /HPF 10/20/18 Range/Units 14:55 MCH (28-32) pg Lymph % (Auto) (13.4-35.0) % Seg Neutrophils % (40.0-70.0) % Seg Neutrophils # (1.8-7.7) K/mm3 BUN 6 L (7-17) mg/dL Creatinine 0.5 L (0.7-1.2) mg/dL Glucose 125 H (65-100) mg/dL Calcium 8.2 L (8.4-10.2) mg/dL Total Protein 6.2 L (6.3-8.2) g/dL Albumin 3.5 L (3.9-5) g/dL HCG, Quant (0-4) mIU/mL U Epithel Cells (Auto) (0-13.0) /HPF All other labs normal. Ultrasound: report reviewed Assessment and Plan - Patient Problems (1) Pelvic pain Current Visit: Yes Status: Acute (2) test positive Current Visit: Yes Status: Acute (3) Adnexal mass Current Visit: Yes Status: Acute (4) Ectopic Current Visit: Yes Status: Acute Plan to address problem: I told the patient that her symptoms and findings correlate with an ectopic pre gnancy. I offered her a diagnostic laparoscopy. Risks and benefits of the procedure were discussed in detail with her such as infection, bleeding requiring blood transfusion, injury to the bowel, bladder and blood vessels, risk of having an ovary removed if she has an ovarian ectopic, risk of having the procedure converted to a laparotomy. She expressed understanding, her questions were answered, she gave her informed consent. OR team and anesthesia were notified. Keep NPO.
[2018-10-20] MEDS ORDERED: DIPRIVAN 10 MG/ML IV ONE (21:39)
[2018-10-20] MEDS ORDERED: SUBLIMAZE ONE (21:39)
[2018-10-20] MEDS ORDERED: DECADRON ONE (21:43)
[2018-10-20] MEDS ORDERED: ZOFRAN ONE (21:43)
[2018-10-20] MEDS ORDERED: XYLOCAINE MPF 2% ONE (21:43)
[2018-10-20] MEDS ORDERED: VERSED ONE (21:44)
[2018-10-20] MEDS ORDERED: ZEMURON IV ONE (22:04)
[2018-10-20] MEDS ORDERED: NACL 0.9% 500 ML 500 ML IV ONE (22:49)
[2018-10-20] MEDS ORDERED: ALBURX 25% (ALBUMIN) IV ONE (23:01)
[2018-10-20 23:11] LABS: Hematocrit 20.2 % (30.3-42.9); Hemoglobin 6.6 gm/dl (10.1-14.3)
[2018-10-20] MEDS ORDERED: ROBINUL ONE (23:20)
[2018-10-20] MEDS ORDERED: BLOXIVERZ ONE (23:20)
[2018-10-20] MEDS ORDERED: TYLENOL PO PRN (23:25)
[2018-10-20] MEDS ORDERED: REGLAN IV PRN (23:25)
--- NOTE | 2018-10-20 23:34 | Operative Report ---
Operative Report Operative Report: Preoperative diagnosis: 1. Left lower abodminal pain. 2. Positive test. 3. Left adnexal mass with free fluid in CDS. 4. Rule out ruptured ectopic. Postoperative diagnosis: 1. Ruptured left tubal ectopic . 2. Hemoperitoneum. Procedure: 1. Diagnostic laparoscopy converted to exploratory laparotomy. 2. Evacuation of hemoperitoneum. 3. Left salpingiectomy. Surgeon: Dr. Gomez Corn Cooker: none Anesthesia: general EBL: negligible for procedure Hemoperitoneum: 1200 cc IVF: RL 1.5 liter Complications: none Specimen: Left fallopian tube with ruptured ectopic . Intraoperative findings: 1. Normal uterus, right fallopian tubes and ovaries bilaterally, ruptured left tubal . 2. Large hemoperitoneum. Procedure details: Risks, benefits, and alternatives of the procedure were discussed in detail with the patient which included but not limited to risk of infection, hemorrhage requiring blood transfusion, injury to the bowel or bladder and blood vessels, removal of fallopian tubes, removal of ovaries, opening the abdomen to remove diseased tissues. The patient expressed understanding, her questions were answered, and she gave informed consent. The patient was taken to the operating room with an IV fluid using Ringer's lactate. In the operating room, she was placed in a dorsal supine position and given general anesthesia. She was then placed on the stirrups in a dorsal lithotomy position. The perineum, vagina, cervix, and abdomen were washed and she was prepared and draped in usual sterile fashion. Examination under anesthesia revealed normal vagina, cervix, the uterus measured 7-week size, anteverted, mobile. The adnexae were non palpable. Currie catheter was placed. A bivalve speculum was placed in the vagina and the anterior lip of the cervix was grasped with a single-tooth tenaculum. A HUMI uterine manipulator was advanced into the uterine cavity to provide a means of manipulating the uterus and the procedure. The speculum and tenaculum were then removed. Attention was then turned to the patient's abdomen where a 5 mm skin incision was made in the infraumbilical fold. The Veress needle was introduced into the peritoneal cavity while tenting the abdominal wall. Intraperitoneal placement was confirmed by using a water-filled syringe and by noticing a drop in the intra-abdominal pressure with CO2 gas insufflation. The trocar and sleeves were then advanced without difficulty into the abdomen where intraperitoneal placement was confirmed using laparoscope. Pneumoperitoneum was achieved with 3.5 L of CO2 gas. A quick survey of the anatomy revealed large amount of hemoperitoneum with clots. The pelvic structures were covered with clots and could not be well visualized. The procedure was then converted to an open procedure where a Pfannenstiel skin incision was made in the lower abdomen about 2 cm above the pubic symphysis using the scalpel. This incision was carried down to the underlying fascia using the Bovie. The fascia was opened bilaterally in a curvilinear fashion using the Bovie. 2 straight Kocker clamps were used to grasp the upper edge of the fascia from which the underlying rectus abdominis muscles was dissected off using the Bovie. A similar procedure was done with the lower edge of the fascia to dissect the underlying rectus abdominis muscle. The muscle was bluntly from the midline by pulling. The parietal peritoneum was grasped with 2 hemostat clamps and entered sharply using Metzenbaum scissors. A quick survey of the anatomy revealed a 7-week size uterus, large amount of hemoperitoneum, left tubal near the cornua with the rupture site actively bleeding, normal right fallopian tube and ovaries bilaterally. About 1200 cc of hemoperitoneum were evcuated. The left fallopian tube with the ectopic was clamped with Rowan clamps and suture ligated using 0 vicryl sutures. After confirming adequate hemostasis, the instruments were removed from the abdominal cavity. The rectus muscle was reapproximated in an interrupted fashion using 0 Vicryl sutures. The fascia was closed in a running fashion using 0 Vicryl sutures. The skin was closed with rachell. Sterile dressing was placed. The counts of laps, needles, sponges, and instruments were correct 2. The patient tolerated the procedure well, she was taken to the recovery room in a stable condition.
[2018-10-20] MEDS ORDERED: NACL 0.9% 500 ML 500 ML ONE (23:36)
--- NOTE | 2018-10-20 23:49 | Event Note ---
Date: 10/20/18 Intraoperative H/H is 6.6/20.2. Patient is being cross-matched for 2 units PRBCs. Will do CBC 3 hrs after the second unit.
[2018-10-21] MEDS ORDERED: DILAUDID IV PRN (00:07)
[2018-10-21] MEDS: MORPHINE IV PRN ×6 (01:23→19:42)
[2018-10-21 05:08] LABS: Hematocrit 27.4 % (30.3-42.9); Hemoglobin 9.1 gm/dl (10.1-14.3); Mean Corpuscular HGB Conc 33 % (30-34); Mean Corpuscular Volume 86 fl (79-97); Platelet Count 129 K/mm3 (140-440); Red Cell Distribution Width 14.4 % (13.2-15.2)
[2018-10-21] MEDS: ZOFRAN IV PRN (05:32)
[2018-10-21] MEDS: LACTATED RINGERS 1,000 ML IV SCH (05:32)
[2018-10-21] MEDS: ANCEF/NS 1 GM/50 ML 1 GM/50 ML BAG IV SCH ×2 (10:16→18:08)
[2018-10-21] MEDS ORDERED: MORPHINE IV PRN (11:42)
[2018-10-21] MEDS ORDERED: MORPHINE ONE (11:51)
--- NOTE | 2018-10-21 19:14 | Progress Note ---
Subjective - Subjective Principal diagnosis: ruptured ectopic Interval history: 37yo POD#1 with 1. Ruptured left tubal ectopic and Hemoperitoneum now s/p 1. Diagnostic laparoscopy converted to exploratory laparotomy. 2. Evacuation of hemoperitoneum. 3. Left salpingiectomy. She reports Objective - Vital Signs Latest vital signs: Vital Signs Temp Pulse Resp BP BP Pulse Ox 10/21/18 15:25 98.4 F 97 H 18 101/55 10/21/18 11:59 98.6 F 18 107/67 10/21/18 08:19 98.5 F 18 103/47 10/21/18 08:10 98.3 F 8 L 95/52 10/21/18 00:45 97.3 F L 82 15 119/67 100 10/21/18 00:15 93 H 15 121/54 100 10/21/18 00:10 83 19 115/54 100 10/21/18 00:08 14 10/21/18 00:05 84 21 111/39 100 10/21/18 00:00 97.2 F L 90 21 108/38 100 10/20/18 21:20 98.1 F 87 16 118/77 100 10/20/18 21:14 16 10/20/18 20:27 82 16 125/58 100 10/20/18 19:53 97.8 F 97 H 18 89/32 100 10/20/18 19:51 18 100 Intake and Output 10/21/18 10/21/18 10/21/18 07:59 15:59 23:59 Intake Total 0 411 385 Output Total 1400 1 Balance -1400 411 384 Intake: IV 50 5 ANCEF/NS 1 GM/50 ML 1 gm 50 In 50 ml @ 100 mls/hr IV Q8H [facility] Rx#:[id number] Right Hand 5 Oral 360 380 Intake, Free Water 1 Blood Product 0 Leukoreduced Red Blood 0 Cells Unit [id number] Output: Urine 1400 1 Uretheral (Currie) 200 Void 1200 1 Other: Intake, Other Source Saline Solution Saline Solution Total, Intake Amount 360 380 Total, Output Amount 1200 1 Voiding Method Toilet Toilet Toilet # Voids 1 Void 2 400 Weight 52.163 kg Patient Weight 10/21/18 23:59 Weight 52.163 kg - Labs Labs: Abnormal lab results 10/20/18 10/20/18 10/21/18 Range/Units 20:05 23:00 04:54 RBC 3.20 L (3.65-5.03) M/mm3 Hgb 6.6 L D 9.1 L (10.1-14.3) gm/dl Hct 20.2 L D 27.4 L D (30.3-42.9) % Plt Count 129 L (140-440) K/mm3 Crossmatch See Detail
[2018-10-21] MEDS: MYLICON PO PRN (21:14)
[2018-10-21] MEDS: TORADOL IV SCH (21:49)
[2018-10-21] MEDS ORDERED: MILK OF MAGNESIA PO PRN (21:54)
[2018-10-22] MEDS: ZOFRAN IV PRN ×3 (03:34→14:20)
[2018-10-22] MEDS: TORADOL IV SCH ×2 (03:37→09:16)
[2018-10-22] MEDS: VASELINE LIP THERAPY TP PRN (11:15)
[2018-10-22] MEDS ORDERED: ULTRAM PO PRN (14:36)
--- NOTE | 2018-10-22 15:23 | Progress Note ---
Assessment and Plan - Patient Problems (1) Ruptured left tubal ectopic causing hemoperitoneum Current Visit: Yes Status: Acute Plan to address problem: 1. Due to new onset abdominal pain will order abdominal CT. 2. Keep NPO 3. Pain uncontrolled. Due to her multi-drug allergy unable to administer narcotics. Will stop Toradol and start Tramadol. 4. Draw labs CMP, betaHCG (2) Nausea Current Visit: Yes Status: Acute Plan to address problem: 1. Order Pelvic/abdominal CT 2. Benadryl IV 3. Phenergan suppository 4. Order urine drug screen - patient aware. Subjective - Subjective Principal diagnosis: ruptured ectopic Interval history: 37yo POD#2 with Ruptured left tubal ectopic and Hemoperitoneum now s/p 1. Diagnostic laparoscopy converted to exploratory laparotomy. 2. Evacuation of hemoperitoneum. 3. Left salpingiectomy. She reports intense nausea with abdominal pain. She is dry heaving as well. She states "where her food is" she feels intense pain and then the pain pushes against her incision. She is lying on her right side in pain holding her abdomen. Nurse and patient state the nausea started after beginning Toradol last evening. Objective - Vital Signs Latest vital signs: Vital Signs Temp Pulse Resp BP Pulse Ox 10/22/18 07:32 98.8 F 94 H 18 108/60 95 10/22/18 04:12 98.2 F 18 106/63 10/21/18 23:46 99.2 F 18 107/56 10/21/18 19:27 98.5 F 18 109/63 10/21/18 19:00 90 95 10/21/18 15:25 98.4 F 97 H 18 101/55 Intake and Output 10/21/18 10/22/18 10/22/18 23:59 07:59 15:59 Intake Total 385 440 Output Total 1 Balance 384 440 Intake: IV 5 Right Hand 5 Oral 380 440 Output: Urine 1 Void 1 Other: Intake, Other Source Saline Solution Total, Intake Amount 380 440 Total, Output Amount 1 Voiding Method Toilet # Voids Void 400 1 - Exam Abdomen: Present: soft, distention (mild distension), tenderness (mild tenderness), guarding (no guarding) Incision: Present: normal (rachell clean dry and intact), dry, intact - Labs Labs: Abnormal lab results 10/20/18 Range/Units 20:05 Crossmatch See Detail
[2018-10-22] MEDS: PHENERGAN PR PRN ×2 (16:20→21:56)
[2018-10-22] MEDS: BENADRYL IV PRN ×2 (16:20→21:54)
--- NOTE | 2018-10-22 17:34 | Cat Scan Report ---
FINAL REPORT EXAM: CT ABDOMEN PELVIS WO CON HISTORY: post-op nausea/vomiting TECHNIQUE: CT abdomen and pelvis without contrast PRIORS: None. FINDINGS: No acute abnormality identified in the lung bases. No focal abnormality identified within the liver parenchyma. The spleen demonstrates normal size and attenuation. No pancreatic abnormalities seen. Kidneys demonstrate no evidence of hydronephrosis or nephrolithiasis. No ureteral calculus identified . The adrenal glands are unremarkable. Abdominal aorta is normal in caliber. There is moderate amount of free fluid in the pelvis. Small amount of a pneumoperitoneum present pres umably postoperative in nature. There is air seen the anterior abdominal along with a transverse lowe r abdominal incision. There diffuse small-bowel distention with bowel loops in the 3.3 centimeter range. No definitive vang sition seen The appendix is identified and is normal in size no adjacent inflammatory change seen. Urinary bladde r is unremarkable. IMPRESSION: Diffuse small-bowel distention likely reflects postoperative ileus. Continued followup recommended Small amount of ascites and free air in the abdomen and pelvis likely postoperative in nature
[2018-10-22 17:55] LABS: Alanine Aminotransferase 11 units/L (7-56); Albumin 3.8 g/dL (3.9-5); BUN/Creatinine Ratio 27; Blood Urea Nitrogen 8 mg/dL (7-17); Calcium 8.5 mg/dL (8.4-10.2); Hemolysis Index 8
[2018-10-22] MEDS: LACTATED RINGERS 1,000 ML IV SCH ×2 (18:08→19:52)
[2018-10-22 18:28] LABS: Amphetamine Screen,Urine PRESUMPTIVE NEGATIVE; Benzodiazepines Screen,Urine PRESUMPTIVE NEGATIVE; Cocaine Screen,Urine PRESUMPTIVE NEGATIVE; Methadone Screen,Urine PRESUMPTIVE NEGATIVE
[2018-10-22 18:45] LABS: Cannabinoid Screen,Urine PRESUMPTIVE POSITIVE; Opiate Screen,Urine PRESUMPTIVE POSITIVE
[2018-10-22] MEDS ORDERED: DULCOLAX PR PRN (18:55)
[2018-10-22] MEDS: MORPHINE IV PRN (21:51)
[2018-10-23] MEDS: MORPHINE IV PRN ×8 (00:05→17:56)
[2018-10-23] MEDS: ZOFRAN IV PRN ×2 (02:18→07:53)
[2018-10-23] MEDS: LACTATED RINGERS 1,000 ML IV SCH ×3 (04:05→19:42)
[2018-10-23] MEDS: BENADRYL IV PRN (04:07)
[2018-10-23] MEDS: VASELINE LIP THERAPY TP PRN (06:56)
--- NOTE | 2018-10-23 19:23 | Discharge Summary ---
Providers - Providers Date of Admission: 10/20/18 23:25 Attending physician: LIANNE SCHAEFFER MD Primary care physician: FORTINO DE LEON Hospitalization Hospital course: 37yo with Ruptured left tubal ectopic and Hemoperitoneum now s/p 1. Diagnostic laparoscopy converted to exploratory laparotomy. 2. Evacuation of hemoperitoneum. 3. Left salpingiectomy. She experienced nausea after Toradol and was kept NPO. Abdominal CT was done revealing possible post-op ileus. She was kept NPO for 24hrs then resumed clear liquids then solid food. Nausea and minimal vomiting have resolved. She has passed flatus. Patient's pain has been difficult to control post-op due to her multi-narcotic allergy. She states hydro- and oxycodone cause intense nausea. She was requiring Morphine 2mg IV Q2hrs until POD #3. She states she can be discharged home on Motrin and Tylenol #3 because that alleviates her pain. She is positive for marijuana. She was discharged home and encouraged to continue to walk to alleviate abdominal gas and aid in bowel movement. Condition at discharge: Stable Disposition: DC-30 STILL A PATIENT - Discharge Diagnoses (1) Ruptured left tubal ectopic causing hemoperitoneum Status: Resolved (2) Nausea Status: Resolved Plan - Discharge Medications Prescriptions: Acetaminophen/Codeine [Tylenol /Codeine # 3 tab] 1 tab PO Q6H PRN #14 tab PRN Reason: pain Docusate Sodium [Colace] 100 mg PO BID PRN 10 Days #20 capsule PRN Reason: Constipation Ibuprofen 800 mg PO Q6H PRN 10 Days #30 tablet MDD 3200mg PRN Reason: Pain, Moderate (4-6) Ondansetron [Zofran ODT TAB] 8 mg PO Q8HR PRN 10 Days #30 tab PRN Reason: Nausea - Provider Discharge Summary Activity: no sex for 6 weeks, no heavy lifting 4 weeks, no strenuous exercise Additional instructions: [] Smoking cessation referral if applicable(refer to patient education folder for contact #) [] Refer to [facility] Booklet Call your doctor immediately for: * Fever > 100.5 * Heavy vaginal bleeding ( >1 pad per hour) * Severe persistent headache * Shortness of breath * Reddened, hot, painful area to leg or breast * Drainage or odor from incision. * Keep incision clean and dry at all times and follow doctor's instructions regarding bathing/showering Must Walk 3 times per day in the house or short distances. Must be seen within 7 days for staple removal. - Follow up plan Follow up: LIANNE SCHAEFFER MD [Staff Physician] - 7 Days
[2018-10-23] MEDS: MYLICON PO PRN (19:35)
[2018-10-23 22:12] VITALS: BP 135/77
== END 2018-10-23 22:25 | disposition home or self-care (01) | DRG 777 ==
LOC: ED 14:30 → OB 23:25
PROVIDERS: ADMIT Obstetrics & Gynecology; ATTEND Obstetrics & Gynecology
PROC: 0UT60ZZ Resection of Left Fallopian Tube, Open Approach (ICD-10-PCS; principal; 2018-10-20)
PROC: 10T20ZZ Resection of Products of Conception, Ectopic, Open Approach (ICD-10-PCS; 2018-10-20)
PROC: 0D9W0ZZ Drainage of Peritoneum, Open Approach (ICD-10-PCS; 2018-10-20)
PROC: 10J24ZZ Inspection of Products of Conception, Ectopic, Percutaneous Endoscopic Approach (ICD-10-PCS; 2018-10-20)
PROC: 30233N1 Transfusion of Nonautologous Red Blood Cells into Peripheral Vein, Percutaneous Approach (ICD-10-PCS; 2018-10-20)
DX: O00.102 Left tubal pregnancy without intrauterine pregnancy (principal); K66.1 Hemoperitoneum; R19.09 Other intra-abdominal and pelvic swelling, mass and lump; F12.90 Cannabis use, unspecified, uncomplicated; G43.909 Migraine, unspecified, not intractable, without status migrainosus; F41.9 Anxiety disorder, unspecified; Z98.51 Tubal ligation status; Z88.5 Allergy status to narcotic agent; Z79.899 Other long term (current) drug therapy
CPT/HCPCS: 36415; 36430; 74176; 76801; 76817; 80053; 80307; 81001; 83690; 84702; 84703; 85014; 85018; 85025; 85027; 86850; 86900; 86901; 86920; 88305; 93005; 93010; G0378; J0690; J1100; J1170; J1200; J1885; J2250; J2270; J2405; J2704; J2710; J2765; J3010; J7030; J7040; J7120; P9016; P9047

== ENCOUNTER 2018-10-25 16:17 | Inpatient (IN) | payer MEDICAID ==
[2018-10-25] MEDS ORDERED: ZOFRAN IV ONE (16:57)
[2018-10-25] MEDS ORDERED: NACL 0.9% 1000 ML 1,000 ML IV ONE (16:57)
[2018-10-25] MEDS ORDERED: MORPHINE IV ONE ×2 (16:57→18:56)
--- NOTE | 2018-10-25 17:03 | Emergency Department Report ---
ED Abdominal Pain HPI - General Chief Complaint: Abdominal Pain Stated Complaint: ABDOMINAL PAIN Time Seen by Provider: 10/25/18 16:40 Source: patient, EMS Mode of arrival: Stretcher Limitations: No Limitations - History of Present Illness Initial Comments: Patient is 37 years old female with recent laparoscopic surgery for removal of left ectopic . Patient presented to the ER via EMS complaining of diffuse abdominal pain, crampy in nature associated with nausea and vomiting. Patient stated that she did not have any bowel movements since she left the hospital on and she did not pass any gas since Wednesday. Patient denied any fever, chills, diarrhea, vaginal bleeding or vaginal discharge. MD Complaint: abdominal pain -: days(s) Location: diffuse Migration to: no migration Severity: moderate Severity scale (0 -10): 10 Quality: cramping Consistency: constant Improves With: nothing Worsens With: nothing - Related Data Previous Rx's Medication Instructions Recorded Last Taken Type ALBUTEROL Inhaler (OR & NICU) 2 puff IH QID PRN #1 inhalation 01/05/18 Unknown Rx [ProAir HFA Inhaler] Acetaminophen/Codeine [Tylenol 1 tab PO Q6H PRN #14 tab 10/23/18 Unknown Rx /Codeine # 3 tab] Docusate Sodium [Colace] 100 mg PO BID PRN 10 Days #20 10/23/18 Unknown Rx capsule Ibuprofen 800 mg PO Q6H PRN 10 Days #30 10/23/18 Unknown Rx tablet MDD 3200mg Allergies Allergy/AdvReac Type Severity Reaction Status Date / Time hydrocodone bitartrate Allergy Vomiting Verified 01/11/14 15:47 [From Vicodin] oxycodone HCl [From Percocet] Allergy Vomiting Verified 01/11/14 15:47 ED Review of Systems ROS: Stated complaint: ABDOMINAL PAIN Other details as noted in HPI Comment: All other systems reviewed and negative Constitutional: denies: chills, fever Respiratory: denies: cough, orthopnea, shortness of breath, SOB with exertion, SOB at rest Cardiovascular: denies: chest pain, palpitations Gastrointestinal: abdominal pain, nausea, vomiting, constipation. denies: diarrhea, hematemesis, melena, hematochezia Genitourinary: denies: dysuria Neurological: weakness (generalized). denies: headache, numbness, paresthesias, confusion, abnormal gait ED Past Medical Hx - Past Medical History Previous Medical History?: Yes Hx Headaches / Migraines: Yes (migraines) Hx Psychiatric Treatment: Yes (anxiety) Additional medical history: right ovarian cyst, scoliosis, seasonal allergies, ectopic pregnanacy - Surgical History Past Surgical History?: Yes Additional Surgical History: tubal ligation, lump removed from left breast, Had a tubaligation and report had 2 miscarriages 1nd 12-01-2015 since having a tubaligation - Social History Smoking Status: Never Smoker Substance Use Type: None - Medications Home Medications: Home Medications Medication Instructions Recorded Confirmed Last Taken Type ALBUTEROL Inhaler (OR & NICU) 2 puff IH QID PRN #1 inhalation 01/05/18 10/25/18 Unknown Rx [ProAir HFA Inhaler] Acetaminophen/Codeine [Tylenol 1 tab PO Q6H PRN #14 tab 10/23/18 10/25/18 Unknown Rx /Codeine # 3 tab] Docusate Sodium [Colace] 100 mg PO BID PRN 10 Days #20 10/23/18 10/25/18 Unknown Rx capsule Ibuprofen 800 mg PO Q6H PRN 10 Days #30 10/23/18 10/25/18 Unknown Rx tablet MDD 3200mg ED Physical Exam - General Limitations: No Limitations General appearance: alert, in no apparent distress - Head Head exam: Present: atraumatic, normocephalic, normal inspection - Eye Eye exam: Present: normal appearance - ENT ENT exam: Present: normal exam, normal orophraynx, mucous membranes moist - Neck Neck exam: Present: normal inspection, full ROM. Absent: tenderness, meningismus, lymphadenopathy, thyromegaly - Respiratory Respiratory exam: Present: normal lung sounds bilaterally. Absent: respiratory distress, wheezes, rales, rhonchi, stridor, chest wall tenderness, accessory muscle use, decreased breath sounds, prolonged expiratory - Cardiovascular Cardiovascular Exam: Present: regular rate, normal rhythm, normal heart sounds - GI/Abdominal GI/Abdominal exam: Present: soft, distended, tenderness, diminished bowel sounds, other (suprapubic surgical scar is intact and dry.). Absent: guarding, rebound, rigid, organomegaly, mass, bruit, pulsatile mass - Extremities Exam Extremities exam: Present: normal inspection, full ROM, normal capillary refill. Absent: tenderness, pedal edema, joint swelling, calf tenderness - Back Exam Back exam: Present: normal inspection, full ROM. Absent: tenderness, CVA tenderness (R), CVA tenderness (L), muscle spasm, paraspinal tenderness, vertebral tenderness, rash noted - Neurological Exam Neurological exam: Present: alert, oriented X3, CN II-XII intact, normal gait, reflexes normal - Skin Skin exam: Present: warm, intact, normal color ED Course Vital Signs 10/25/18 10/25/18 10/25/18 17:40 17:46 18:00 Temperature Pulse Rate Respiratory Rate Blood Pressure 129/79 129/80 Blood Pressure [Right] O2 Sat by Pulse 97 95 96 Oximetry 10/25/18 10/25/18 18:15 20:31 Temperature 97.9 F Pulse Rate 103 H 101 H Respiratory 18 Rate Blood Pressure Blood Pressure 141/84 [Right] O2 Sat by Pulse 95 Oximetry - Reevaluation(s) Reevaluation #1: 10/25/18 20:09 Patient evaluated by me multiple times. Patient continue to have abdominal pain even after 6 mg of morphine. No vomiting observed after Zofran. - Consultations Consultation #1: 10/25/18 20:07 I discussed the patient is Dr. Merino, she advised to insert NG tube and will fo llow-up on the patient. Consultation #2: 10/25/18 20:52 I discussed the patient is Dr. Ireland, she stated that she will inform Dr. Gomez to follow up on the patient. ED Medical Decision Making - Lab Data Result diagrams: 10/25/18 18:11 10/25/18 17:07 - Radiology Data Radiology results: report reviewed Referring Physician: ROBERTO RODRIGUEZ Patient Name: ALEXYS ESTRADA Date of : 1980 Sex: Female Report Date: 2018-10-25 Report Status: Finalized Findings [facility] [address] [place] [address] Cat Scan Report Signed Patient: ALEXYS ESTRADA MR#: [id number] : 1980 Acct:[id number] Age/Sex: 37 / F ADM Date: 10/25/18 Loc: ED Attending Dr: Ordering Physician: ROBERTO RODRIGUEZ Date of Service: 10/25/18 Procedure(s): CT abdomen pelvis w con Accession Number(s): [id number] cc: ROBERTO RODRIGUEZ FINAL REPORT EXAM: CT ABDOMEN PELVIS W CON HISTORY: Abdominal Pain/ s/p laprotomy due ectopic pregnanc TECHNIQUE: Following administration of IV contrast axial helical imaging was performed through the abdomen and pelvis with sagittal and coronal reformatted images obtained. Comparison: CT abdomen and pelvis dated October 22, 2018 FINDINGS: There has been interval development of patchy areas of pulmonary consolidation in the lower lobes bilaterally which may represent areas of pulmonary infiltrate or pulmonary edema . Again noted is the pericardial effusion as was demonstrated on the previous study. There is marked distention of the stomach and the small bowel (4.9 centimeters) to the level of the distal ileum. The caliber of the small bowel distal to the transition measures approximately 0.6 centimeters. The colon is decompressed. There is an "swirling" of the distal mesenteric vessels which may indicate the presence of a mesenteric volvulus. There is a small amount of free fluid in the abdomen and pelvis that is increased in degree in the interval. There is no evidence of pneumoperitoneum there are small collections of pneumoperitoneum. The abdominal aorta is normal caliber. There is no evidence of intra abdominal adenopathy. The urinary bladder is moderately distended and unremarkable in appearance. The uterus and adnexal are unremarkable. The bony structures are unremarkable. There is the appearance of diffuse edema in the subcutaneous soft tissues of the abdomen and pelvis and acute postsurgical change in the anterior pelvic wall with skin closure rachell in place and small collections of subcutaneous air and air in the right rectus sheath. IMPRESSION: 1. High-grade small bowel obstruction. 2. "Swirling" of the distal mesenteric vessels which may represent a mesenteric volvulus and the etiology of the small bowel obstruction.. 3. Small collections of pneumoperitoneum as well as air within the anterior abdominal/pelvic wall which has decreased in degree in the interval and most likely represents acute postsurgical change. 4. Interval development of pulmonary infiltrates both lung bases. Infectious and noninfectious etiology, to include pneumonia and pulmonary edema, need to be considered. 5. Small pericardial fluid collection as was demonstrated on the previous study. The above findings were discussed with Dr. Rodriguez at 7:43 p.m. October 25, 2018. Transcribed By: ED Dictated By: IGLESIA QUINN MD Electronically Authenticated By: IGLESIA QUINN MD Signed Date/Time: 10/25/181947 DD/ 45 TD/TT: 10/25/181945 - Medical Decision Making Patient is 37 years old female with recent laparoscopic surgery for removal of left ectopic . Patient presented to the ER via EMS complaining of diffuse abdominal pain, crampy in nature associated with nausea and vomiting. Patient stated that she did not have any bowel movements since she left the hospital on and she did not pass any gas since Wednesday. Patient denied any fever, chills, diarrhea, vaginal bleeding or vaginal discharge. Patient found to have a high-grade small bowel obstruction. I discussed the patient is Dr. Merino. I discussed the patient is Dr. Thorne, he agreed to admit the patient to medical service and advised to put initial admission order Critical Care Time: Yes Critical care time in (mins) excluding proc time.: 45 Critical care attestation.: If time is entered above; I have spent that time in minutes in the direct care of this critically ill patient, excluding procedure time. ED Disposition Clinical Impression: Abdominal pain, Small bowel obstruction Disposition: OP ADMIT IP TO THIS HOSP Is pt being admited?: Yes Condition: Stable
[2018-10-25 17:52] LABS: Alanine Aminotransferase 9 units/L (7-56); Albumin 4.8 g/dL (3.9-5); BUN/Creatinine Ratio 18; Bilirubin,Direct 0.2 mg/dL (0-0.2); Blood Urea Nitrogen 16 mg/dL (7-17); Calcium 9.5 mg/dL (8.4-10.2); Hemolysis Index 0
[2018-10-25 18:28] LABS: Basophils % (Auto) 0.1 % (0.0-1.8); Eosinophils % (Auto) 0.1 % (0.0-4.3); Hematocrit 34.9 % (30.3-42.9); Hemoglobin 11.5 gm/dl (10.1-14.3); Lymphocytes # (Auto) 0.3 K/mm3 (1.2-5.4); Lymphocytes % (Auto) 3.8 % (13.4-35.0); Mean Corpuscular HGB Conc 33 % (30-34); Mean Corpuscular Volume 86 fl (79-97); Monocytes # (Auto) 0.6 K/mm3 (0.0-0.8); Monocytes % (Auto) 7.4 % (0.0-7.3); Platelet Count 264 K/mm3 (140-440); Red Blood Count 4.07 M/mm3 (3.65-5.03); Red Cell Distribution Width 14.4 % (13.2-15.2)
--- NOTE | 2018-10-25 19:48 | Cat Scan Report ---
FINAL REPORT EXAM: CT ABDOMEN PELVIS W CON HISTORY: Abdominal Pain/ s/p laprotomy due ectopic pregnanc TECHNIQUE: Following administration of IV contrast axial helical imaging was performed through the a bdomen and pelvis with sagittal and coronal reformatted images obtained. Comparison: CT abdomen and pelvis dated October 22, 2018 FINDINGS: There has been interval development of patchy areas of pulmonary consolidation in the lower lobes joe aterally which may represent areas of pulmonary infiltrate or pulmonary edema. Again noted is the pericardial effusion as was demonstrated on the previous study. There is marked distention of the stomach and the small bowel (4.9 centimeters) to the level of the d istal ileum. The caliber of the small bowel distal to the transition measures approximately 0.6 centi meters. The colon is decompressed. There is an "swirling" of the distal mesenteric vessels which may indicate the presence of a mesenter ic volvulus. There is a small amount of free fluid in the abdomen and pelvis that is increased in degree in the in terval. There is no evidence of pneumoperitoneum there are small collections of pneumoperitoneum. The abdominal aorta is normal caliber. There is no evidence of intra abdominal adenopathy. The urinary bladder is moderately distended and unremarkable in appearance. The uterus and adnexal are unremarkable. The bony structures are unremarkable. There is the appearance of diffuse edema in the subcutaneous soft tissues of the abdomen and pelvis a nd acute postsurgical change in the anterior pelvic wall with skin closure rachell in place and small collections of subcutaneous air and air in the right rectus sheath. IMPRESSION: 1. High-grade small bowel obstruction. 2. "Swirling" of the distal mesenteric vessels which may represent a mesenteric volvulus and the ina ology of the small bowel obstruction.. 3. Small collections of pneumoperitoneum as well as air within the anterior abdominal/pelvic wall whi ch has decreased in degree in the interval and most likely represents acute postsurgical change. 4. Interval development of pulmonary infiltrates both lung bases. Infectious and noninfectious etiolo gy, to include pneumonia and pulmonary edema, need to be considered. 5. Small pericardial fluid collection as was demonstrated on the previous study. The above findings were discussed with Dr. Ruiz at 7:43 p.m. October 25, 2018.
[2018-10-25] MEDS ORDERED: LIDOCAINE VISCOUS 2% PO ONE (20:12)
[2018-10-25] MEDS ORDERED: SUBLIMAZE IV ONE (20:12)
[2018-10-25] MEDS ORDERED: ZOSYN/NS 3.375GM/50ML 3.375 GM/50 ML BAG IV ONE (20:56)
[2018-10-25] MEDS ORDERED: ZOFRAN IV PRN (21:28)
[2018-10-25] MEDS ORDERED: DILAUDID IV PRN ×2 (21:28→21:59)
[2018-10-25] MEDS ORDERED: SUBLIMAZE IV PRN (21:28)
[2018-10-25] MEDS ORDERED: SUBLIMAZE ONE ×2 (21:36→23:45)
[2018-10-25] MEDS ORDERED: ZEMURON IV ONE (21:36)
[2018-10-25] MEDS ORDERED: XYLOCAINE MPF 2% ONE (21:36)
[2018-10-25] MEDS ORDERED: DIPRIVAN 10 MG/ML IV ONE (21:36)
--- NOTE | 2018-10-25 21:46 | Anesthesia Day of Surgery ---
Anesthesia Day of Surgery - Day of Surgery Patient Examined: Yes Patient H&P Reviewed: Yes Patient is NPO: Yes (NGT in place; N/V x few days)
--- NOTE | 2018-10-25 21:48 | Anesthesia Consultation ---
Anesthesia Consult and Med Hx Date of service: 10/25/18 (Here 10/20/18) - Airway Anesthetic Teeth Evaluation: Good ROM Head & Neck: Adequate Mental/Hyoid Distance: Adequate Mallampati Class: Class I Intubation Access Assessment: Good - Pre-Operative Health Status ASA Pre-Surgery Classification: ASA2, Emergency Proposed Anesthetic Plan: General - Pulmonary Hx Pneumonia: No (infiltrates on x-ray) - Cardiovascular System Hx Hypertension: No (pericardial fluid on x-ray) - Central Nervous System Hx Psychiatric Problems: Yes (Anxiety; migraines)
[2018-10-25] MEDS ORDERED: NACL 0.9% 1000 ML 1,000 ML IV SCH ×2 (22:00→23:00)
[2018-10-25] MEDS ORDERED: FLAGYL 500 MG/100 ML 500 MG/100 ML BAG IV SCH (22:00)
[2018-10-25] MEDS ORDERED: TYLENOL PR PRN (22:00)
--- NOTE | 2018-10-25 22:01 | Consultation ---
History of Present Illness Consult date: 10/25/18 Chief complaint: abdominal pain, distension, n/v - History of present illness History of present illness: 37 yo F s/p 1. Diagnostic laparoscopy converted to exploratory laparotomy, Evacuation of hemoperitoneum, Left salpingiectomy for ruptured ectopic on 10.20.18 presents to hospital with c/o nausea, vomiting, and diffuse abdominal pain. She states that after surgery she was nauseated and vomiting and unable to tolerate a diet. She states she has not had a BM since surgery and has not passed flatus since discharge. Her abdominal pain is now in the left lower abdomen without radiation. It is continuous. No alleviating factors. She tried to eat crackers today but could not due to vomiting. Emesis has been bilious, nonbloody. Denies f/c, cp, sob. Ct scan A/P in ER showed high grade SBO with mesenteric swirling in the pelvis which could be the location of obstruction. Surgery consulted for evaluation. Past History Past Medical History: other (anxiety, ruptured ectopic) Past Surgical History: Other (tubal ligation. Diagnostic laparoscopy converted to exploratory laparotomy, L salpingectomy) Social history: no significant social history Family history: diabetes, hypertension Medications and Allergies Allergies Allergy/AdvReac Type Severity Reaction Status Date / Time hydrocodone bitartrate Allergy Vomiting Verified 01/11/14 15:47 [From Vicodin] oxycodone HCl [From Percocet] Allergy Vomiting Verified 01/11/14 15:47 Home Medications Medication Instructions Recorded Confirmed Last Taken Type ALBUTEROL Inhaler (OR & NICU) 2 puff IH QID PRN #1 inhalation 01/05/18 10/25/18 Unknown Rx [ProAir HFA Inhaler] Acetaminophen/Codeine [Tylenol 1 tab PO Q6H PRN #14 tab 10/23/18 10/25/18 Unknown Rx /Codeine # 3 tab] Docusate Sodium [Colace] 100 mg PO BID PRN 10 Days #20 10/23/18 10/25/18 Unknown Rx capsule Ibuprofen 800 mg PO Q6H PRN 10 Days #30 10/23/18 10/25/18 Unknown Rx tablet MDD 3200mg Active Meds: Active Medications Fentanyl (Sublimaze) 50 mcg IV Q5MIN PRN PRN Reason: Pain , Severe (7-10) Stop: 10/26/18 04:15 Hydromorphone HCl (Dilaudid) 0.5 mg IV Q10MIN PRN PRN Reason: Pain , Severe (7-10) Stop: 10/26/18 04:35 Ondansetron HCl (Zofran) 4 mg IV ONCE PRN PRN Reason: Nausea And Vomiting Stop: 10/26/18 04:16 Review of Systems All systems: negative (10 PT ROS performed and negative except for that listed in HPI) Exam Vital Signs Pulse Ox 97 10/25/18 17:40 Narrative exam: Gen: AAOx3. NAD ENT: NGT with bilious output CV: s1, S2+. tachycardic resp: even and unlabored Abd: soft but taught, distended, + L abdominal TTP. no r/r/g. Pfannenstiel incision c/d/i with rachell in place. Ext: no c/c/e Results - Labs 10/25/18 18:11 10/25/18 17:07 Abnormal lab results 10/25/18 10/25/18 Range/Units 17:07 18:11 Lymph % (Auto) 3.8 L (13.4-35.0) % [place] % (Auto) 7.4 H (0.0-7.3) % Lymph # 0.3 L (1.2-5.4) K/mm3 Seg Neutrophils % 88.6 H (40.0-70.0) % Potassium 3.5 L (3.6-5.0) mmol/L Chloride 86.4 L (98-107) mmol/L Carbon Dioxide 31 H (22-30) mmol/L Glucose 124 H (65-100) mg/dL Total Protein 8.3 H D (6.3-8.2) g/dL Diabetes panel 10/25/18 Range/Units 17:07 Sodium 139 (137-145) mmol/L Potassium 3.5 L (3.6-5.0) mmol/L Chloride 86.4 L (98-107) mmol/L Carbon Dioxide 31 H (22-30) mmol/L BUN 16 (7-17) mg/dL Creatinine 0.9 D (0.7-1.2) mg/dL Glucose 124 H (65-100) mg/dL Calcium 9.5 (8.4-10.2) mg/dL AST 19 (5-40) units/L ALT 9 (7-56) units/L Alkaline Phosphatase 65 (35-129) units/L Total Protein 8.3 H D (6.3-8.2) g/dL Albumin 4.8 (3.9-5) g/dL Calcium panel 10/25/18 Range/Units 17:07 Calcium 9.5 (8.4-10.2) mg/dL Albumin 4.8 (3.9-5) g/dL Pituitary panel 10/25/18 Range/Units 17:07 Sodium 139 (137-145) mmol/L Potassium 3.5 L (3.6-5.0) mmol/L Chloride 86.4 L (98-107) mmol/L Carbon Dioxide 31 H (22-30) mmol/L BUN 16 (7-17) mg/dL Creatinine 0.9 D (0.7-1.2) mg/dL Glucose 124 H (65-100) mg/dL Calcium 9.5 (8.4-10.2) mg/dL Adrenal panel 10/25/18 Range/Units 17:07 Sodium 139 (137-145) mmol/L Potassium 3.5 L (3.6-5.0) mmol/L Chloride 86.4 L (98-107) mmol/L Carbon Dioxide 31 H (22-30) mmol/L BUN 16 (7-17) mg/dL Creatinine 0.9 D (0.7-1.2) mg/dL Glucose 124 H (65-100) mg/dL Calcium 9.5 (8.4-10.2) mg/dL Total Bilirubin 0.90 (0.1-1.2) mg/dL AST 19 (5-40) units/L ALT 9 (7-56) units/L Alkaline Phosphatase 65 (35-129) units/L Total Protein 8.3 H D (6.3-8.2) g/dL Albumin 4.8 (3.9-5) g/dL - Imaging CT scan - abdomen: report reviewed, image reviewed CT scan - pelvis: report reviewed, image reviewed Assessment and Plan 37 yo F with 1. high grade SBO 2. possible internal hernia 3. dehydration 4. tachycardia 5. s/p Diagnostic laparoscopy converted to exploratory laparotomy, Evacuation of hemoperitoneum, Left salpingiectomy POD 5 Plan: I reviewed the Ct scan A/P from today as well as the one performed on 10/22 which was prior to patient being discharged from above procedure. The bowel dilatation has progressed and there is mesenteric swirling in the pelvis at the location of the transition point. There appears to be decompressed ileum in this area. This is concerning for possible internal hernia which is causing SBO. 1. Admit to hospitalist service 2. NPO 3. IVF 4. NGT placed in ER 14 F - bilious drainage, will change to larger NGT in OR 5. Based on the findings of the CT scan and patient's clinical picture, I recommend OR for exploratory laparotomy, possible bowel resection. I explained all risks, benefits, and alternatives to the patient and questions answered. We reviewed the findings of the CT scan. Consent obtained. 6. ancef OCTOR 7. strict I/Os 8. DVT ppx Thank you, please call with questions.
[2018-10-25] MEDS ORDERED: DECADRON ONE (23:13)
[2018-10-25] MEDS ORDERED: DILAUDID ONE (23:24)
[2018-10-25] MEDS ORDERED: LOPRESSOR IV ONE (23:37)
[2018-10-25] MEDS ORDERED: BLOXIVERZ ONE (23:43)
[2018-10-25] MEDS ORDERED: ROBINUL ONE (23:43)
[2018-10-26] MEDS ORDERED: NARCAN 0.4 MG/1 ML IV PRN (00:10)
--- NOTE | 2018-10-26 00:21 | Post Operative Note ---
Date of procedure: 10/26/18 Pre-op diagnosis: high grade small bowel obstruction Post-op diagnosis: same Findings: 1. thin adhesion in the pelvis which was the site for obstruction, clear transition point in distal jejunum. No obvious internal hernia seen 2. serosal tear in jejunum proximal to the obstruction due to severe dilatation 3. 1 cm tear in mesentery of mid jejunum without bleeding Procedure: Exploratory laparotomy, lysis of adhesions, repair of small bowel serosal tear Anesthesia: GETA Surgeon: INESSA GREER Estimated blood loss: minimal Pathology: none Condition: stable Disposition: PACU
--- NOTE | 2018-10-26 00:40 | Post Anesthesia Evaluation ---
- Post Anesthesia Evaluation Patient Participated: Yes Airway Patent: Yes Stable Respiratory Function: Yes Nausea/Vomiting: No Temp > 96.8F: Yes Pain Manageable: Yes Adequeate Hydration: Yes Anesthesia Complications: No Block Receding Appropriately: Not Applicable Patient on Ventilator: No
[2018-10-26] MEDS: MORPHINE PCA 30MG/30ML IV SCH (01:15)
[2018-10-26] MEDS ORDERED: VASELINE LIP THERAPY TP PRN (02:44)
[2018-10-26] MEDS ORDERED: ZOSYN/NS 3.375GM/50ML 3.375 GM/50 ML BAG IV SCH ×2 (04:00)
--- NOTE | 2018-10-26 04:37 | History and Physical Report ---
CHIEF COMPLAINT: Abdominal pain. Other complaint includes nausea and vomiting. HISTORY OF PRESENT ILLNESS: The patient is a 37-year-old female, who had laparoscopic surgery for ectopic done about 6 days prior to presentation. She has not had any bowel movement since she left the hospital. Also, the patient denied passing any gas for the period of time as she was constipated. There is no history of fever or chills. No history of chest pain or shortness of breath. The patient admitted to having nausea and vomiting and came to the Emergency Room where she was evaluated and CAT scan showed high-grade small bowel obstruction and also volvulus. PAST MEDICAL HISTORY: Pertinent for migraine headaches, anxiety disorder, right ovarian cyst, scoliosis, seasonal allergies, and ectopic . PAST SURGICAL HISTORY: Pertinent for tubal ligation, lump removal from the left breast. FAMILY HISTORY: Noncontributory. SOCIAL HISTORY: The patient does not smoke, does not drink alcohol and does not use illicit drugs. MEDICATIONS: The patient is on albuterol inhaler 2 puffs by inhalation q.i.d., Tylenol No. 3 one by mouth every 6 hours as needed for pain, Colace 100 mg by mouth twice daily, ibuprofen 800 mg by mouth every 6 hours as needed for pain. ALLERGIES: THE PATIENT IS ALLERGIC TO HYDROCODONE BITARTRATE and OXYCODONE HYDROCHLORIDE. REVIEW OF SYSTEMS: CONSTITUTIONAL: There is no fever, no chills, no diaphoresis. HEENT: There is no headache or sore throat. CARDIOVASCULAR: There is no chest pain or orthopnea. RESPIRATORY SYSTEM: There is no shortness of breath or cough. GASTROINTESTINAL SYSTEM: Abdominal pain present. Constipation present. Nausea and vomiting present. No diarrhea. No hematemesis or melena. NEUROLOGICAL SYSTEM: There is no numbness, no dizziness, no altered mental status. MUSCULOSKELETAL SYSTEM: There is no joint pain or swelling. DERMATOLOGICAL SYSTEM: There is no skin rash or itching. GENITOURINARY SYSTEM: There is no dysuria, hematuria, or flank pain. Rest of system review is normal. PHYSICAL EXAMINATION: GENERAL: At the time of exam, the patient was found to be alert, oriented x 3, anxious, but not in acute distress. VITAL SIGNS: Shows temperature of 97.9 degrees Fahrenheit, pulse of 101, respirations 18, blood pressure of 141/84, O2 sat of 95% on room. HEENT: Showed pupils to be equal, round, reactive to light and accommodating. Extraocular muscles are intact. The patient has nasogastric tube through the nostril. NECK: Supple with no JVD or carotid bruit. CARDIOVASCULAR: Showed normal first and second heart sounds with no gallops or murmurs. RESPIRATORY SYSTEM: Show good air entry on both sides of the lungs with no abnormal breath sounds. GASTROINTESTINAL SYSTEM: Show abdomen to be distended, firm, tender to touch with no rigidity and no rebound tenderness. Bowel sound is hypoactive. NEUROLOGICAL SYSTEM: Show no focal deficit. MUSCULOSKELETAL SYSTEM: Show no joint swelling or tenderness. DERMATOLOGICAL SYSTEM: Show no skin rash. GENITOURINARY SYSTEM: Show no costovertebral angle tenderness. PERTINENT LABORATORY DATA AND IMAGING STUDIES: The patient has CT of the abdomen and pelvis done, which shows high-grade small bowel obstruction and also there is a finding of swirling of the distal mesenteric vessels, which Radiology said may represent mesenteric volvulus and described it as the cause of the small bowel obstruction. There is finding of small collection of pneumoperitoneum as well as air within the anterior abdominopelvic wall, which the radiologist say has decreased in degree in the interval, most likely represents acute postsurgical change. There is also finding of pulmonary infiltrates in both lung bases and the radiologist is stating that it could be infectious or noninfectious in origin and said to include pneumonia and pulmonary edema. There is finding of a small pericardial fluid collection, which was in the previous study the patient had. The patient's lab results, CBC showed normal white count, normal hemoglobin and normal hematocrit with CBC differential showing elevated segmented neutrophil count of 88.6%. The patient's chemistry show low potassium of 3.5 with low chloride of 86.4 and the rest of chemistry was unremarkable. DIAGNOSES: 1. High-grade Small bowel obstruction. 2. Mesenteric volvulus. PLAN OF CARE: 1. The patient will be admitted to medical surgical [facility]. 2. The patient will continue surgical consult with Dr. Kera Merino who is already aware of the patient's presentation. 3. The patient will continue nasogastric low wall suctioning started in the Emergency Room. 4. The patient will remain n.p.o. and will be on IV Dilaudid 0.5 mg q. 4 hours as needed for pain and will be on IV Zofran 4 mg every 8 hours as needed for nausea and vomiting. 5. The patient will be on IV normal saline at 125 mL an hour. 6. The patient will be on IV Zosyn 3.375 grams q. 8 hours. 7. The patient will be on IV metronidazole 500 mg q. 8 hours. 8. The patient will be on Tylenol 650 mg rectally every 4 hours for fever and headache. 9. patient will be on I.V Diludid for pain JOB# [id number] OCN/NTS MTDD
[2018-10-26] MEDS: FLAGYL 500 MG/100 ML 500 MG/100 ML BAG IV SCH ×3 (05:43→22:55)
[2018-10-26 05:47] LABS: Hematocrit 34.5 % (30.3-42.9); Hemoglobin 11.4 gm/dl (10.1-14.3); Mean Corpuscular HGB Conc 33 % (30-34); Mean Corpuscular Volume 86 fl (79-97); Platelet Count 306 K/mm3 (140-440); Red Cell Distribution Width 14.8 % (13.2-15.2)
[2018-10-26 06:04] LABS: BUN/Creatinine Ratio 20; Blood Urea Nitrogen 14 mg/dL (7-17); Calcium 6.9 mg/dL (8.4-10.2); Hemolysis Index 7
[2018-10-26 06:39] LABS: Bilirubin,Urine NEG (Negative); Blood,Urine NEG (Negative); Color,Urine Yellow (Yellow); Mucus,Urine FEW /HPF; Protein,Urine <15 mg/dL mg/dL (Negative); Urobilinogen,Urine < 2.0 mg/dL (<2.0)
--- NOTE | 2018-10-26 11:34 | Progress Note ---
Assessment and Plan Assessment and plan: 37 year old female with past medical hx of anxiety, migraine headaches, tubal ligation and left breast lump removal along with recent surgery for ectopic presents with abdominal pain and noted to have high grade SBO requiring Exploratory laparotomy, lysis of adhesions, repair of small bowel ser osal tear, SBO S/P Exploratory laparotomy, lysis of adhesions, repair of small bowel serosal tear POD 1 Peritoneal irritation secondary to above Lekocytosis- Reactive Plan Continue supportive care NPO except ICE CHIPS PT/OT. IS. ASPIRATION PRECAUTIONS PAIN CONTROL PER SURGERY DVT/GI PROPHY Plan discussed with patient and significant other History Interval history: Patient seen and examined today, reports some improvement and wanted to know what was done during surgery. She has not had bowel movement yet Hospitalist Physical - Constitutional Vitals: Temp Pulse Resp BP Pulse Ox 97.9 F 119 H 16 130/75 99 10/26/18 07:10 10/26/18 07:10 10/26/18 10:00 10/26/18 07:10 10/26/18 07:10 General appearance: Present: no acute distress, well-nourished - EENT ENT: clear oral mucosa - Neck Neck: Present: supple, normal ROM - Respiratory Respiratory effort: normal Respiratory: bilateral: CTA - Cardiovascular Rhythm: regular Heart Sounds: Present: S1 & S2. Absent: systolic murmur - Extremities Extremities: no ischemia, pulses intact, pulses symmetrical, No edema, normal temperature Peripheral Pulses: within normal limits - Abdominal General gastrointestinal: soft, non-tender, distended, hypoactive bowel sounds - Integumentary Integumentary: Present: clear, warm, dry - Psychiatric Psychiatric: appropriate mood/affect, intact judgment & insight, cooperative - Neurologic Neurologic: CNII-XII intact, moves all extremities - Allied Health Allied health notes reviewed: nursing Results - Labs CBC & Chem 7: 10/26/18 05:33 10/26/18 05:33 Labs: Laboratory Last Values WBC 13.7 K/mm3 (4.5-11.0) H 10/26/18 05:33 RBC 4.00 M/mm3 (3.65-5.03) 10/26/18 05:33 Hgb 11.4 gm/dl (10.1-14.3) 10/26/18 05:33 Hct 34.5 % (30.3-42.9) 10/26/18 05:33 MCV 86 fl (79-97) 10/26/18 05:33 MCH 28 pg (28-32) 10/26/18 05:33 MCHC 33 % (30-34) 10/26/18 05:33 RDW 14.8 % (13.2-15.2) 10/26/18 05:33 Plt Count 306 K/mm3 (140-440) 10/26/18 05:33 Lymph % (Auto) 3.8 % (13.4-35.0) L 10/25/18 18:11 [place] % (Auto) 7.4 % (0.0-7.3) H 10/25/18 18:11 Eos % (Auto) 0.1 % (0.0-4.3) 10/25/18 18:11 Baso % (Auto) 0.1 % (0.0-1.8) 10/25/18 18:11 Lymph # 0.3 K/mm3 (1.2-5.4) L 10/25/18 18:11 [place] # 0.6 K/mm3 (0.0-0.8) 10/25/18 18:11 Eos # 0.0 K/mm3 (0.0-0.4) 10/25/18 18:11 Baso # 0.0 K/mm3 (0.0-0.1) 10/25/18 18:11 Seg Neutrophils % 88.6 % (40.0-70.0) H 10/25/18 18:11 Seg Neutrophils # 7.7 K/mm3 (1.8-7.7) 10/25/18 18:11 Sodium 140 mmol/L (137-145) 10/26/18 05:33 Potassium 3.7 mmol/L (3.6-5.0) 10/26/18 05:33 Chloride 100.3 mmol/L (98-107) 10/26/18 05:33 Carbon Dioxide 26 mmol/L (22-30) 10/26/18 05:33 Anion Gap 17 mmol/L 10/26/18 05:33 BUN 14 mg/dL (7-17) 10/26/18 05:33 Creatinine 0.7 mg/dL (0.7-1.2) 10/26/18 05:33 Estimated GFR > 60 ml/min 10/26/18 05:33 BUN/Creatinine Ratio 20 % 10/26/18 05:33 Glucose 120 mg/dL (65-100) H 10/26/18 05:33 Calcium 6.9 mg/dL (8.4-10.2) L D 10/26/18 05:33 Phosphorus 4.40 mg/dL (2.5-4.5) 10/26/18 05:33 Magnesium 2.30 mg/dL (1.7-2.3) 10/26/18 05:33 Total Bilirubin 0.90 mg/dL (0.1-1.2) 10/25/18 17:07 Direct Bilirubin 0.2 mg/dL (0-0.2) 10/25/18 17:07 Indirect Bilirubin 0.7 mg/dL 10/25/18 17:07 AST 19 units/L (5-40) 10/25/18 17:07 ALT 9 units/L (7-56) 10/25/18 17:07 Alkaline Phosphatase 65 units/L (35-129) 10/25/18 17:07 Total Protein 8.3 g/dL (6.3-8.2) H D 10/25/18 17:07 Albumin 3.1 g/dL (3.9-5) L 10/26/18 05:33 Albumin/Globulin Ratio 1.4 % 10/25/18 17:07 Lipase 49 units/L (13-60) 10/25/18 17:07 Urine Color Yellow (Yellow) 10/26/18 06:26 Urine Turbidity Clear (Clear) 10/26/18 06:26 Urine pH 5.0 (5.0-7.0) 10/26/18 06:26 Ur Specific [place] 1.035 (1.003-1.030) H 10/26/18 06:26 Urine Protein <15 mg/dl mg/dL (Negative) 10/26/18 06:26 Urine Glucose (UA) Neg mg/dL (Negative) 10/26/18 06:26 Urine Ketones 80 mg/dL (Negative) 10/26/18 06:26 Urine Blood Neg (Negative) 10/26/18 06:26 Urine Nitrite Neg (Negative) 10/26/18 06:26 Urine Bilirubin Neg (Negative) 10/26/18 06:26 Urine Urobilinogen < 2.0 mg/dL (<2.0) 10/26/18 06:26 Ur Leukocyte Esterase Neg (Negative) 10/26/18 06:26 Urine WBC (Auto) 8.0 /HPF (0.0-6.0) H 10/26/18 06:26 Urine RBC (Auto) 2.0 /HPF (0.0-6.0) 10/26/18 06:26 Urine Mucus Few /HPF 10/26/18 06:26
--- NOTE | 2018-10-26 13:03 | Progress Note ---
Assessment and Plan 37 yo F s/p Exploratory laparotomy, lysis of adhesions, repair of small bowel serosal tear, POD 1 for high grade SBO Plan: 1. NPO except ice chips 2. IVF - change to maintenance 3. dc [place] 4. IS/pulm toilet 5. NGT to LCWS 6. strict I/os 7. OOB/ambulate 8. DVT ppx - add lovenox 9. await bowel function 10. pain control with [employer], will add toradol to help wean [employer] 11. ice to incision 12. abd binder for comfort 13. repeat labs in am Thank you, please call with questions. Objective Vital Signs - 12hr 10/26/18 10/26/18 10/26/18 01:15 01:25 01:30 Temperature Pulse Rate 130 H 123 H Respiratory 17 15 17 Rate Blood Pressure 122/79 117/77 Blood Pressure [Right] O2 Sat by Pulse 100 100 Oximetry 10/26/18 10/26/18 10/26/18 01:55 02:14 03:15 Temperature 98.1 F Pulse Rate 124 H Respiratory 18 18 Rate Blood Pressure 126/71 Blood Pressure [Right] O2 Sat by Pulse 99 97 Oximetry 10/26/18 10/26/18 10/26/18 05:01 05:15 07:10 Temperature 97.4 F L 97.9 F Pulse Rate 122 H 119 H Respiratory 17 18 16 Rate Blood Pressure 130/75 Blood Pressure 121/77 [Right] O2 Sat by Pulse 96 99 Oximetry 10/26/18 10/26/18 10/26/18 07:15 10:00 11:42 Temperature 98.3 F Pulse Rate 118 H Respiratory 16 16 20 Rate Blood Pressure 129/82 Blood Pressure [Right] O2 Sat by Pulse 96 Oximetry - Labs 10/26/18 05:33 10/26/18 05:33 Diabetes panel 10/25/18 10/26/18 10/26/18 Range/Units 17:07 05:33 05:33 Sodium 139 140 (137-145) mmol/L Potassium 3.5 L 3.7 (3.6-5.0) mmol/L Chloride 86.4 L 100.3 (98-107) mmol/L Carbon Dioxide 31 H 26 (22-30) mmol/L BUN 16 14 (7-17) mg/dL Creatinine 0.9 D 0.7 (0.7-1.2) mg/dL Glucose 124 H 120 H (65-100) mg/dL Calcium 9.5 6.9 L D (8.4-10.2) mg/dL AST 19 (5-40) units/L ALT 9 (7-56) units/L Alkaline Phosphatase 65 (35-129) units/L Total Protein 8.3 H D (6.3-8.2) g/dL Albumin 4.8 3.1 L (3.9-5) g/dL Calcium panel 10/25/18 10/26/18 10/26/18 Range/Units 17:07 05:33 05:33 Calcium 9.5 6.9 L D (8.4-10.2) mg/dL Phosphorus 4.40 (2.5-4.5) mg/dL Albumin 4.8 3.1 L (3.9-5) g/dL Pituitary panel 10/25/18 10/26/18 Range/Units 17:07 05:33 Sodium 139 140 (137-145) mmol/L Potassium 3.5 L 3.7 (3.6-5.0) mmol/L Chloride 86.4 L 100.3 (98-107) mmol/L Carbon Dioxide 31 H 26 (22-30) mmol/L BUN 16 14 (7-17) mg/dL Creatinine 0.9 D 0.7 (0.7-1.2) mg/dL Glucose 124 H 120 H (65-100) mg/dL Calcium 9.5 6.9 L D (8.4-10.2) mg/dL Adrenal panel 10/25/18 10/26/18 10/26/18 Range/Units 17:07 05:33 05:33 Sodium 139 140 (137-145) mmol/L Potassium 3.5 L 3.7 (3.6-5.0) mmol/L Chloride 86.4 L 100.3 (98-107) mmol/L Carbon Dioxide 31 H 26 (22-30) mmol/L BUN 16 14 (7-17) mg/dL Creatinine 0.9 D 0.7 (0.7-1.2) mg/dL Glucose 124 H 120 H (65-100) mg/dL Calcium 9.5 6.9 L D (8.4-10.2) mg/dL Total Bilirubin 0.90 (0.1-1.2) mg/dL AST 19 (5-40) units/L ALT 9 (7-56) units/L Alkaline Phosphatase 65 (35-129) units/L Total Protein 8.3 H D (6.3-8.2) g/dL Albumin 4.8 3.1 L (3.9-5) g/dL
[2018-10-26] MEDS: D5W/0.45% NACL/KCL 20 MEQ 20 MEQ/1,000 ML BAG IV SCH (15:09)
[2018-10-26] MEDS: LOVENOX SUB-Q SCH (15:17)
[2018-10-26] MEDS: ZOSYN/NS 4.5GM/100ML 4.5 GM/100 ML VIAL IV SCH ×2 (15:17→22:00)
[2018-10-26] MEDS: TORADOL IV SCH (17:38)
--- NOTE | 2018-10-26 18:24 | Consultation ---
History of Present Illness - Reason for Consult Consult date: 10/26/18 S/P exploratory laparotomy for small bowel obstruction - History of Present Illness Patient is a 37 year old female who presented to the ER complaining of having abdominal pain, nausea, and vomiting for 1 day. She was discharged from the hospital 3 days earlier after she underwent exploratory laparotomy with evacuation of 1200 cc of hemoperitoneum and left salpingiectomy for ruptured ectopic. She was tolerating regular diet before her discharge. She said that after she got home, she did not move her bowel, started to feel nauseous and vomited several times. In the ER, CT scan revealed SBO. Surgical consult was called. She was taken to the OR for exploratory laparotomy. Lysis of adhesions was done. She is POD#1. I found her lying in bed comfortably with family at her bedside. She has an NG tube to low wall suction draining greenish material. She is awake, alert, and oriented. She says that she is feeling better today. Her incision is mildly tender otherwise shows no drainage or bleeding. Past History Past Medical History: other (anxiety, ruptured ectopic) Social history: no significant social history Family history: diabetes, hypertension Medications and Allergies Allergies Allergy/AdvReac Type Severity Reaction Status Date / Time hydrocodone bitartrate Allergy Vomiting Verified 01/11/14 15:47 [From Vicodin] oxycodone HCl [From Percocet] Allergy Vomiting Verified 01/11/14 15:47 Home Medications Medication Instructions Recorded Confirmed Last Taken Type ALBUTEROL Inhaler (OR & NICU) 2 puff IH QID PRN #1 inhalation 01/05/18 10/25/18 Unknown Rx [ProAir HFA Inhaler] Acetaminophen/Codeine [Tylenol 1 tab PO Q6H PRN #14 tab 10/23/18 10/25/18 Unknown Rx /Codeine # 3 tab] Docusate Sodium [Colace] 100 mg PO BID PRN 10 Days #20 10/23/18 10/25/18 Unknown Rx capsule Ibuprofen 800 mg PO Q6H PRN 10 Days #30 10/23/18 10/25/18 Unknown Rx tablet MDD 3200mg Active Meds: Active Medications Acetaminophen (Tylenol) 650 mg TN Q4H PRN PRN Reason: Fever >101 Enoxaparin Sodium (Lovenox) 40 mg SUB-Q DAILY BLANK Last Admin: 10/26/18 15:17 Dose: 40 mg Documented by: Hydrophilic Ointment (Vaseline Lip Therapy) 1 applic TP DIRECT PRN PRN Reason: Dry Lips Last Admin: 10/26/18 05:04 Dose: 1 applic Documented by: Metronidazole (Flagyl 500 Mg/100 Ml) 500 mg in 100 mls @ 100 mls/hr IV Q8HR BLANK; Protocol Last Admin: 10/26/18 13:03 Dose: 100 mls/hr Documented by: Piperacillin Sod/Tazobactam Sod (Zosyn/Ns 4.5gm/100ml) 4.5 gm in 100 mls @ 200 mls/hr IV Q8HR BLANK Last Admin: 10/26/18 15:17 Dose: 200 mls/hr Documented by: Potassium Chloride/Dextrose/Sod Cl (D5w/0.45% Nacl/Kcl 20 Meq) 20 meq in 1,000 mls @ 125 mls/hr IV DIRECT BLANK Last Admin: 10/26/18 15:09 Dose: 125 mls/hr Documented by: Ketorolac Tromethamine (Toradol) 15 mg IV Q6HR BLANK Stop: 10/31/18 17:59 Last Admin: 10/26/18 17:38 Dose: Not Given Documented by: Morphine Sulfate (Morphine Employment Specialist 30mg/30ml) 0 mg IV DIRECT BLANK; Protocol Last Admin: 10/26/18 01:15 Dose: 1 cartstart Documented by: Naloxone HCl (Narcan 0.4 Mg/1 Ml) 0.1 mg IV Q2MIN PRN PRN Reason: Res Rate </= 8 or 02 SAT < 92% Ondansetron HCl (Zofran) 4 mg IV Q6H PRN PRN Reason: Nausea Exam - Constitutional Vitals: Temp Pulse Resp BP Pulse Ox 98.2 F 127 H 20 120/72 97 10/26/18 16:44 10/26/18 16:44 10/26/18 16:44 10/26/18 16:44 10/26/18 16:44 - Respiratory Respiratory: bilateral: CTA - Cardiovascular Rhythm: regular Heart Sounds: Present: S1 & S2 - Extremities Extremities: no ischemia, No edema, Full ROM - Abdominal Localized gastrointestinal: tender: midline (postop) Female genitourinary: Present: deferred - Musculoskeletal Musculoskeletal: strength equal bilaterally - Psychiatric Psychiatric: appropriate mood/affect - Neurologic Neurologic: CNII-XII intact Results - Labs CBC & Chem 7: 10/27/18 04:16 10/27/18 04:16 Labs: Abnormal lab results 10/25/18 10/26/18 10/26/18 Range/Units 18:11 05:33 05:33 WBC 13.7 H (4.5-11.0) K/mm3 Lymph % (Auto) 3.8 L (13.4-35.0) % [place] % (Auto) 7.4 H (0.0-7.3) % Lymph # 0.3 L (1.2-5.4) K/mm3 Seg Neutrophils % 88.6 H (40.0-70.0) % Glucose 120 H (65-100) mg/dL Calcium 6.9 L D (8.4-10.2) mg/dL Albumin (3.9-5) g/dL Ur Specific [place] (1.003-1.030) Urine WBC (Auto) (0.0-6.0) /HPF 10/26/18 10/26/18 Range/Units 05:33 06:26 WBC (4.5-11.0) K/mm3 Lymph % (Auto) (13.4-35.0) % [place] % (Auto) (0.0-7.3) % Lymph # (1.2-5.4) K/mm3 Seg Neutrophils % (40.0-70.0) % Glucose (65-100) mg/dL Calcium (8.4-10.2) mg/dL Albumin 3.1 L (3.9-5) g/dL Ur Specific [place] 1.035 H (1.003-1.030) Urine WBC (Auto) 8.0 H (0.0-6.0) /HPF Assessment and Plan - Patient Problems (1) Small bowel obstruction Current Visit: Yes Status: Acute (2) S/P exploratory laparotomy Current Visit: Yes Status: Acute Plan to address problem: Continue care as per general surgeon. Patient's answers about her ectopic were answered. She was told to follow up after her discharge for incision check next week. Please call [employer] Cycle Cabinet Installer if any question.
[2018-10-27] MEDS: TORADOL IV SCH ×3 (00:01→20:06)
[2018-10-27] MEDS: MORPHINE PCA 30MG/30ML IV SCH (02:25)
[2018-10-27] MEDS: D5W/0.45% NACL/KCL 20 MEQ 20 MEQ/1,000 ML BAG IV SCH ×2 (02:30→13:00)
[2018-10-27 04:32] LABS: Hematocrit 30.1 % (30.3-42.9); Hemoglobin 9.8 gm/dl (10.1-14.3); Mean Corpuscular HGB Conc 33 % (30-34); Mean Corpuscular Volume 84 fl (79-97); Platelet Count 309 K/mm3 (140-440); Red Blood Count 3.57 M/mm3 (3.65-5.03); Red Cell Distribution Width 14.7 % (13.2-15.2)
[2018-10-27 04:51] LABS: BUN/Creatinine Ratio 18; Blood Urea Nitrogen 11 mg/dL (7-17); Calcium 7.5 mg/dL (8.4-10.2); Hemolysis Index 0
[2018-10-27] MEDS: ZOSYN/NS 4.5GM/100ML 4.5 GM/100 ML VIAL IV SCH ×3 (05:31→22:17)
[2018-10-27] MEDS: FLAGYL 500 MG/100 ML 500 MG/100 ML BAG IV SCH ×3 (06:18→23:19)
[2018-10-27] MEDS ORDERED: HEMORRHOIDAL 0.25/3/85.5% PR PRN (10:06)
--- NOTE | 2018-10-27 10:32 | Progress Note ---
Assessment and Plan 37 yo F s/p Exploratory laparotomy, lysis of adhesions, repair of small bowel serosal tear, POD 2 for high grade SBO Plan: Pt doing well. 1. c/w NPO except ice chips 2. IVF - maintenance 3. replace K 4. IS/pulm toilet 5. NGT to LCWS 6. strict I/Os 7. OOB/ambulate 8. DVT ppx - lovenox 9. await bowel function 10. pain control with PERFORMANCE IMPROVEMENT CONSULTANT, toradol to help wean PERFORMANCE IMPROVEMENT CONSULTANT 11. ice to incision 12. abd binder for comfort 13. repeat labs in am Thank you, please call with questions. Subjective Date of service: 10/27/18 Narrative: Pt seen and examined. No complaints. Feels hungry. Pain is well controlled. No f/c. Has not had flatus or BM but feels pressure like she will soon. She has been ambulating. She voided after huertas was removed yesterday. Objective Vital Signs - 12hr 10/26/18 10/27/18 10/27/18 23:15 01:03 02:15 Respiratory 18 18 18 Rate O2 Sat by Pulse Oximetry 10/27/18 10/27/18 06:25 09:11 Respiratory 20 Rate O2 Sat by Pulse 96 Oximetry - General physical appearance Narrative Exam: Gen; AAOx3. NAD ENT: NGT with bilious drainage CV: s1, S2+ Resp: even and unlabored Abd: soft, distended, NT. dressing removed. midline incision and pfannenstiel incision c/d/i. no r/r/g. Abdominal binder in place Ext; no c/c/e - Labs 10/27/18 04:16 10/27/18 04:16 Diabetes panel 10/27/18 Range/Units 04:16 Sodium 139 (137-145) mmol/L Potassium 3.4 L (3.6-5.0) mmol/L Chloride 100.6 (98-107) mmol/L Carbon Dioxide 30 (22-30) mmol/L BUN 11 (7-17) mg/dL Creatinine 0.6 L (0.7-1.2) mg/dL Glucose 113 H (65-100) mg/dL Calcium 7.5 L (8.4-10.2) mg/dL Calcium panel 10/27/18 Range/Units 04:16 Calcium 7.5 L (8.4-10.2) mg/dL Pituitary panel 10/27/18 Range/Units 04:16 Sodium 139 (137-145) mmol/L Potassium 3.4 L (3.6-5.0) mmol/L Chloride 100.6 (98-107) mmol/L Carbon Dioxide 30 (22-30) mmol/L BUN 11 (7-17) mg/dL Creatinine 0.6 L (0.7-1.2) mg/dL Glucose 113 H (65-100) mg/dL Calcium 7.5 L (8.4-10.2) mg/dL Adrenal panel 10/27/18 Range/Units 04:16 Sodium 139 (137-145) mmol/L Potassium 3.4 L (3.6-5.0) mmol/L Chloride 100.6 (98-107) mmol/L Carbon Dioxide 30 (22-30) mmol/L BUN 11 (7-17) mg/dL Creatinine 0.6 L (0.7-1.2) mg/dL Glucose 113 H (65-100) mg/dL Calcium 7.5 L (8.4-10.2) mg/dL
[2018-10-27] MEDS: LOVENOX SUB-Q SCH (10:48)
--- NOTE | 2018-10-27 13:00 | Operative Report ---
PREOPERATIVE DIAGNOSIS: High-grade small-bowel obstruction. POSTOPERATIVE DIAGNOSIS: High-grade small-bowel obstruction. FINDINGS: 1. Thin adhesion in the pelvis, which was a site for obstruction, clear transition point in the distal jejunum. No obvious internal hernia seen. 2. Serosal tear in the jejunum proximal to the obstruction due to severe dilatation. 3. A 1 cm tear in the mesentery of the mid jejunum without bleeding. PROCEDURE: Exploratory laparotomy, lysis of adhesions, repair of small bowel serosal tear. ANESTHESIA: General endotracheal anesthesia. SURGEON: Kera Merino DO ESTIMATED BLOOD LOSS: Minimal. IV FLUIDS: 2 liters, NG tube output 1 liter bilious. URINE OUTPUT: 150 mL. PATHOLOGY: None. CONDITION: Stable. DISPOSITION: To PACU HISTORY OF PRESENT ILLNESS AND INDICATION: The patient is a 37-year-old female who underwent a diagnostic laparoscopy converted to exploratory laparotomy through a Pfannenstiel incision on 10/20/2018 by MANAGER SHELL. This was secondary to a ruptured ectopic in the left tube. The patient underwent evacuation of a large amount of hemoperitoneum as well as left salpingectomy. She was discharged from the hospital 2 days postop. During her hospitalization, she did experience nausea and vomiting and a CAT scan was obtained without contrast. The CAT scan showed a postoperative ileus. When the patient's symptoms improved, she was discharged to home. The patient returned to the hospital on 10/25/2018 with complaints of severe diffuse abdominal pain, nausea, vomiting, inability to have a bowel movement or pass flatus. A CT scan in the ER was performed using IV contrast, which showed a high grade distal small-bowel obstruction with a swirling in the distal mesenteric vessels in the pelvis concerning for an internal hernia. Upon examination of the patient, she did have left lower abdominal pain with severe abdominal distention. Due to the patient's symptoms and the CT scan findings, it was recommended that the patient go for an urgent exploratory laparotomy. All risks, benefits, alternatives to surgery were discussed with the patient and questions answered. Consent was obtained. PROCEDURE IN DETAIL: The patient was identified in the preoperative area and taken back to the operating room and placed on the operating table in supine position. After anesthesia was induced, a Currie catheter was sterilely placed by the circulating nurse. The 14-Nigerien NG tube placed in the Emergency Room was exchanged by anesthesia for an 18-Nigerien NG tube in the left naris. A time out was performed. A midline incision was made using a #10 blade. Dissection was carried down through the skin and subcutaneous tissue using electrocautery. Hemostasis was achieved along the way. Once the fascia was encountered, it was grasped between 2 Kochers and tented up. This was entered using electrocautery. Once the peritoneum was entered, the remainder of the incision was opened over 2 gloved fingers with extreme care to avoid injury to the underlying structures. This was done with electrocautery. There was immediate drainage of serous fluid and I encountered very dilated small bowel. The small bowel was slowly eviscerated and an adhesion was found in the pelvis. This adhesion was bluntly dissected and the remainder of the small bowel was able to be eviscerated. There was a granados transition point from the very distended bowel approximately 7 cm in diameter to very decompressed small bowel approximately 1 cm in diameter at the point of this adhesion. There was no stricture seen and the bowel lumen was widely open. The bowel distal to this was completely decompressed all the way to the cecum. The entire colon was decompressed. The small bowel was then ran proximally and was distended all the way to the ligament of Treitz. The stomach was palpated and also very distended. The NG tube was palpated in the stomach and the positioning confirmed. Anesthesia was able to suction out a total of 1 liter of bilious fluid from the bowel. Upon inspection of the small bowel once again there did appear to be a serosal tear in the jejunum proximal to the obstruction. There was no gross spillage of bowel contents and there was no perforation. The serosal tear was repaired with interrupted Lembert sutures using 3-0 silk sutures. The bowel was ran once again and all of the mesentery was examined. There was no evidence of internal hernia or swirling. There was a very small 1 cm tear in the mesentery of the mid jejunum which was without bleeding. The small opening was closed with 1 interrupted 3-0 silk suture. Due to the severe distention and a fluid filled bowel, we were unable to place the bowel back into the abdomen and close the abdomen without tension. Therefore, the fluid was slowly and very meticulously milked back to the proximal small bowel and into the stomach in order to facilitate decompression. Once the bowel was decompressed as much as possible and as safely as possible, I was able to place the bowel back into the abdomen in a normal anatomic position and ensured that the mesentery laid straight without any twisting. The omentum was located and placed over the bowel. The fascia was then closed using #1 looped PDS in the usual fashion without tension. Subcutaneous tissue was examined and hemostasis insured. The skin was closed with rachell. An island dressing was applied. At the end of the case, all sponge, instrument, sharp counts were correct x 2. The patient was awoken from anesthesia, extubated, and taken to PACU in stable condition. JOB# [id number] GRAEME/ADRIAN MCRAE
--- NOTE | 2018-10-27 15:09 | Progress Note ---
Assessment and Plan Assessment and plan: 37 year old female with past medical hx of anxiety, migraine headaches, tubal ligation and left breast lump removal along with recent surgery for ectopic presents with abdominal pain and noted to have high grade SBO requiring Exploratory laparotomy, lysis of adhesions, repair of small bowel ser osal tear, SBO S/P Exploratory laparotomy, lysis of adhesions, repair of small bowel serosal tear POD 2 Peritoneal irritation secondary to above Lekocytosis- Reactive Plan Continue supportive care NPO except ICE CHIPS PT/OT. IS. ASPIRATION PRECAUTIONS Outpatient follow up with CLERK for follow up and incision check PAIN CONTROL PER SURGERY DVT/GI PROPHY Plan discussed with patient and significant other . History Interval history: Patient seen and examined today, improving some today still with NGT. She has not had bowel movement yet Hospitalist Physical - Physical exam Narrative exam: General appearance: Present: no acute distress, well-nourished - EENT ENT: clear oral mucosa - Neck Neck: Present: supple, normal ROM - Respiratory Respiratory effort: normal Respiratory: bilateral: CTA - Cardiovascular Rhythm: regular Heart Sounds: Present: S1 & S2. Absent: systolic murmur - Extremities Extremities: no ischemia, pulses intact, pulses symmetrical, No edema, normal temperature Peripheral Pulses: within normal limits - Abdominal General gastrointestinal: soft, tender, distended, hypoactive bowel sounds - Integumentary Integumentary: Present: clear, warm, dry - Psychiatric Psychiatric: appropriate mood/affect, intact judgment & insight, cooperative - Neurologic Neurologic: CNII-XII intact, moves all extremities - Allied Health Allied health notes reviewed: nursing - Constitutional Vitals: Temp Pulse Resp BP Pulse Ox 98.1 F 104 H 20 113/66 99 10/26/18 20:19 10/27/18 11:33 10/27/18 06:25 10/27/18 08:00 10/27/18 11:33 General appearance: Present: no acute distress, well-nourished Results - Labs CBC & Chem 7: 10/27/18 04:16 10/27/18 04:16 Labs: Laboratory Last Values WBC 12.4 K/mm3 (4.5-11.0) H 10/27/18 04:16 RBC 3.57 M/mm3 (3.65-5.03) L 10/27/18 04:16 Hgb 9.8 gm/dl (10.1-14.3) L 10/27/18 04:16 Hct 30.1 % (30.3-42.9) L 10/27/18 04:16 MCV 84 fl (79-97) 10/27/18 04:16 MCH 28 pg (28-32) 10/27/18 04:16 MCHC 33 % (30-34) 10/27/18 04:16 RDW 14.7 % (13.2-15.2) 10/27/18 04:16 Plt Count 309 K/mm3 (140-440) 10/27/18 04:16 Lymph % (Auto) 3.8 % (13.4-35.0) L 10/25/18 18:11 [place] % (Auto) 7.4 % (0.0-7.3) H 10/25/18 18:11 Eos % (Auto) 0.1 % (0.0-4.3) 10/25/18 18:11 Baso % (Auto) 0.1 % (0.0-1.8) 10/25/18 18:11 Lymph # 0.3 K/mm3 (1.2-5.4) L 10/25/18 18:11 [place] # 0.6 K/mm3 (0.0-0.8) 10/25/18 18:11 Eos # 0.0 K/mm3 (0.0-0.4) 10/25/18 18:11 Baso # 0.0 K/mm3 (0.0-0.1) 10/25/18 18:11 Seg Neutrophils % 88.6 % (40.0-70.0) H 10/25/18 18:11 Seg Neutrophils # 7.7 K/mm3 (1.8-7.7) 10/25/18 18:11 Sodium 139 mmol/L (137-145) 10/27/18 04:16 Potassium 3.4 mmol/L (3.6-5.0) L 10/27/18 04:16 Chloride 100.6 mmol/L (98-107) 10/27/18 04:16 Carbon Dioxide 30 mmol/L (22-30) 10/27/18 04:16 Anion Gap 12 mmol/L 10/27/18 04:16 BUN 11 mg/dL (7-17) 10/27/18 04:16 Creatinine 0.6 mg/dL (0.7-1.2) L 10/27/18 04:16 Estimated GFR > 60 ml/min 10/27/18 04:16 BUN/Creatinine Ratio 18 % 10/27/18 04:16 Glucose 113 mg/dL (65-100) H 10/27/18 04:16 Calcium 7.5 mg/dL (8.4-10.2) L 10/27/18 04:16 Phosphorus 4.40 mg/dL (2.5-4.5) 10/26/18 05:33 Magnesium 2.30 mg/dL (1.7-2.3) 10/26/18 05:33 Total Bilirubin 0.90 mg/dL (0.1-1.2) 10/25/18 17:07 Direct Bilirubin 0.2 mg/dL (0-0.2) 10/25/18 17:07 Indirect Bilirubin 0.7 mg/dL 10/25/18 17:07 AST 19 units/L (5-40) 10/25/18 17:07 ALT 9 units/L (7-56) 10/25/18 17:07 Alkaline Phosphatase 65 units/L (35-129) 10/25/18 17:07 Total Protein 8.3 g/dL (6.3-8.2) H D 10/25/18 17:07 Albumin 3.1 g/dL (3.9-5) L 10/26/18 05:33 Albumin/Globulin Ratio 1.4 % 10/25/18 17:07 Lipase 49 units/L (13-60) 10/25/18 17:07 Urine Color Yellow (Yellow) 10/26/18 06:26 Urine Turbidity Clear (Clear) 10/26/18 06:26 Urine pH 5.0 (5.0-7.0) 10/26/18 06:26 Ur Specific [place] 1.035 (1.003-1.030) H 10/26/18 06:26 Urine Protein <15 mg/dl mg/dL (Negative) 10/26/18 06:26 Urine Glucose (UA) Neg mg/dL (Negative) 10/26/18 06:26 Urine Ketones 80 mg/dL (Negative) 10/26/18 06:26 Urine Blood Neg (Negative) 02/13/19 06:26 Urine Nitrite Neg (Negative) 10/26/18 06:26 Urine Bilirubin Neg (Negative) 10/26/18 06:26 Urine Urobilinogen < 2.0 mg/dL (<2.0) 10/26/18 06:26 Ur Leukocyte Esterase Neg (Negative) 10/26/18 06:26 Urine WBC (Auto) 8.0 /HPF (0.0-6.0) H 10/26/18 06:26 Urine RBC (Auto) 2.0 /HPF (0.0-6.0) 10/26/18 06:26 Urine Mucus Few /HPF 10/26/18 06:26
[2018-10-27] MEDS: KCL 10MEQ/100ML 10 MEQ/100 ML BAG IV SCH ×4 (15:14→20:22)
[2018-10-27] MEDS ORDERED: BENADRYL IV SCH (22:00)
[2018-10-28] MEDS: TORADOL IV SCH ×4 (00:09→18:33)
[2018-10-28] MEDS: ZOSYN/NS 4.5GM/100ML 4.5 GM/100 ML VIAL IV SCH ×3 (05:18→22:12)
[2018-10-28] MEDS: FLAGYL 500 MG/100 ML 500 MG/100 ML BAG IV SCH ×3 (06:31→22:13)
[2018-10-28] MEDS: MORPHINE PCA 30MG/30ML IV SCH (09:28)
[2018-10-28] MEDS: LOVENOX SUB-Q SCH (09:33)
[2018-10-28 10:48] LABS: BUN/Creatinine Ratio 23; Blood Urea Nitrogen 9 mg/dL (7-17); Calcium 7.3 mg/dL (8.4-10.2); Hemolysis Index 4
--- NOTE | 2018-10-28 11:07 | Progress Note ---
Hospitalist Physical - Constitutional Vitals: Temp Pulse Resp BP Pulse Ox 99.0 F 99 H 18 108/71 98 10/28/18 07:13 10/28/18 07:13 10/28/18 07:13 10/28/18 07:13 10/28/18 07:13 General appearance: Present: no acute distress, well-nourished Results - Labs CBC & Chem 7: 10/27/18 04:16 10/28/18 10:13 Labs: Laboratory Last Values WBC 12.4 K/mm3 (4.5-11.0) H 10/27/18 04:16 RBC 3.57 M/mm3 (3.65-5.03) L 10/27/18 04:16 Hgb 9.8 gm/dl (10.1-14.3) L 10/27/18 04:16 Hct 30.1 % (30.3-42.9) L 10/27/18 04:16 MCV 84 fl (79-97) 10/27/18 04:16 MCH 28 pg (28-32) 10/27/18 04:16 MCHC 33 % (30-34) 10/27/18 04:16 RDW 14.7 % (13.2-15.2) 10/27/18 04:16 Plt Count 309 K/mm3 (140-440) 10/27/18 04:16 Lymph % (Auto) 3.8 % (13.4-35.0) L 10/25/18 18:11 [place] % (Auto) 7.4 % (0.0-7.3) H 10/25/18 18:11 Eos % (Auto) 0.1 % (0.0-4.3) 10/25/18 18:11 Baso % (Auto) 0.1 % (0.0-1.8) 10/25/18 18:11 Lymph # 0.3 K/mm3 (1.2-5.4) L 10/25/18 18:11 [place] # 0.6 K/mm3 (0.0-0.8) 10/25/18 18:11 Eos # 0.0 K/mm3 (0.0-0.4) 10/25/18 18:11 Baso # 0.0 K/mm3 (0.0-0.1) 10/25/18 18:11 Seg Neutrophils % 88.6 % (40.0-70.0) H 10/25/18 18:11 Seg Neutrophils # 7.7 K/mm3 (1.8-7.7) 10/25/18 18:11 Sodium 136 mmol/L (137-145) L 10/28/18 10:13 Potassium 3.2 mmol/L (3.6-5.0) L 10/28/18 10:13 Chloride 99.3 mmol/L (98-107) 10/28/18 10:13 Carbon Dioxide 27 mmol/L (22-30) 10/28/18 10:13 Anion Gap 13 mmol/L 10/28/18 10:13 BUN 9 mg/dL (7-17) 10/28/18 10:13 Creatinine 0.4 mg/dL (0.7-1.2) L 10/28/18 10:13 Estimated GFR > 60 ml/min 10/28/18 10:13 BUN/Creatinine Ratio 23 % 10/28/18 10:13 Glucose 96 mg/dL (65-100) 10/28/18 10:13 Calcium 7.3 mg/dL (8.4-10.2) L 10/28/18 10:13 Phosphorus 1.50 mg/dL (2.5-4.5) L 10/28/18 10:13 Magnesium 1.90 mg/dL (1.7-2.3) 10/28/18 10:13 Total Bilirubin 0.90 mg/dL (0.1-1.2) 10/25/18 17:07 Direct Bilirubin 0.2 mg/dL (0-0.2) 10/25/18 17:07 Indirect Bilirubin 0.7 mg/dL 10/25/18 17:07 AST 19 units/L (5-40) 10/25/18 17:07 ALT 9 units/L (7-56) 10/25/18 17:07 Alkaline Phosphatase 65 units/L (35-129) 10/25/18 17:07 Total Protein 8.3 g/dL (6.3-8.2) H D 10/25/18 17:07 Albumin 3.1 g/dL (3.9-5) L 10/26/18 05:33 Albumin/Globulin Ratio 1.4 % 10/25/18 17:07 Lipase 49 units/L (13-60) 10/25/18 17:07 Urine Color Yellow (Yellow) 10/26/18 06:26 Urine Turbidity Clear (Clear) 10/26/18 06:26 Urine pH 5.0 (5.0-7.0) 10/26/18 06:26 Ur Specific [place] 1.035 (1.003-1.030) H 10/26/18 06:26 Urine Protein <15 mg/dl mg/dL (Negative) 10/26/18 06:26 Urine Glucose (UA) Neg mg/dL (Negative) 10/26/18 06:26 Urine Ketones 80 mg/dL (Negative) 10/26/18 06:26 Urine Blood Neg (Negative) 10/26/18 06:26 Urine Nitrite Neg (Negative) 10/26/18 06:26 Urine Bilirubin Neg (Negative) 10/26/18 06:26 Urine Urobilinogen < 2.0 mg/dL (<2.0) 10/26/18 06:26 Ur Leukocyte Esterase Neg (Negative) 10/26/18 06:26 Urine WBC (Auto) 8.0 /HPF (0.0-6.0) H 10/26/18 06:26 Urine RBC (Auto) 2.0 /HPF (0.0-6.0) 10/26/18 06:26 Urine Mucus Few /HPF 10/26/18 06:26
[2018-10-28] MEDS: PROTONIX IV SCH ×2 (12:20→22:11)
[2018-10-28] MEDS ORDERED: KPHOS 45 MMOL in NACL 0.9% 500 ML 500 ML IV ONE (13:00)
[2018-10-28] MEDS ORDERED: CEPACOL X STRENGTH MM PRN (13:17)
[2018-10-28] MEDS ORDERED: CHLORASEPTIC MM PRN (13:17)
--- NOTE | 2018-10-28 13:20 | Progress Note ---
Assessment and Plan 37 yo F s/p Exploratory laparotomy, lysis of adhesions, repair of small bowel serosal tear, POD 3 for high grade SBO Plan: Pt doing well. 1. c/w NPO except ice chips. ok to have lozenge or mint 2. IVF - changed to D5NS with 30meq KCL 3. replace K and Phos 4. IS/pulm toilet 5. NGT to LCWS, protonix BID ordered per 1' 6. strict I/Os 7. OOB/ambulate 8. DVT ppx - lovenox 9. await bowel function 10. pain control with DATA SECURITY COORDINATOR, toradol to help wean DATA SECURITY COORDINATOR 11. ice to incision 12. abd binder for comfort 13. repeat labs in am Thank you, please call with questions Subjective Date of service: 10/28/18 Narrative: Pt seen and examined. States she had a lot of reflux overnight. No f/c, cp, sob, n/v. She feels like she needs to pass flatus. No flatus or BM yet. Minimal abdominal pain. Not using DATA SECURITY COORDINATOR very much. Ambulating on her own. Objective Vital Signs - 12hr 10/28/18 10/28/18 10/28/18 04:30 07:13 12:05 Temperature 98.8 F 99.0 F 98.5 F Pulse Rate 109 H 99 H 109 H Respiratory 18 18 18 Rate Blood Pressure 105/68 Blood Pressure 108/71 113/74 [Right] O2 Sat by Pulse 96 98 98 Oximetry - General physical appearance Narrative Exam: Gen; AAOx3. NAD ENT: NGT bilious CV: s1, S2+ Resp; even and unlabored Abd: soft, distended, NT. incisions c/d/i with rachell in place. Hypoactive bowel sounds. No r/r/g Ext: no c/c/e - Labs 10/27/18 04:16 10/28/18 10:13 Diabetes panel 10/28/18 Range/Units 10:13 Sodium 136 L (137-145) mmol/L Potassium 3.2 L (3.6-5.0) mmol/L Chloride 99.3 (98-107) mmol/L Carbon Dioxide 27 (22-30) mmol/L BUN 9 (7-17) mg/dL Creatinine 0.4 L (0.7-1.2) mg/dL Glucose 96 (65-100) mg/dL Calcium 7.3 L (8.4-10.2) mg/dL Calcium panel 10/28/18 Range/Units 10:13 Calcium 7.3 L (8.4-10.2) mg/dL Phosphorus 1.50 L (2.5-4.5) mg/dL Pituitary panel 10/28/18 Range/Units 10:13 Sodium 136 L (137-145) mmol/L Potassium 3.2 L (3.6-5.0) mmol/L Chloride 99.3 (98-107) mmol/L Carbon Dioxide 27 (22-30) mmol/L BUN 9 (7-17) mg/dL Creatinine 0.4 L (0.7-1.2) mg/dL Glucose 96 (65-100) mg/dL Calcium 7.3 L (8.4-10.2) mg/dL Adrenal panel 10/28/18 Range/Units 10:13 Sodium 136 L (137-145) mmol/L Potassium 3.2 L (3.6-5.0) mmol/L Chloride 99.3 (98-107) mmol/L Carbon Dioxide 27 (22-30) mmol/L BUN 9 (7-17) mg/dL Creatinine 0.4 L (0.7-1.2) mg/dL Glucose 96 (65-100) mg/dL Calcium 7.3 L (8.4-10.2) mg/dL
[2018-10-28] MEDS: KCL 30 MEQ in D5NS 1,000 ML IV SCH (15:27)
--- NOTE | 2018-10-28 16:55 | Progress Note ---
Assessment and Plan Assessment and plan: A/P Acute Hypokalemia replete and recheck Significant Hypophosphatemia replete and recheck in am s/p Abd Surgery for high grade SBO post op care GERD add Protonix BID Recent Ectopic post op care Post op abd pain' optimal pain control Further pt mgt per hospital course Disposition Plan: per hospital course Total Time Spent with Patient (Minutes): 33 mins spent History Interval history: Admitted with high grade SBO s/p ex lap , POD #3. Remains NPO, NG Tube to suction. Subjective: c/o reflux symptoms. hopes she can eat soon. Electrolytes low. Pt is very appreciative of care here at [facility]. Hospitalist Physical - Constitutional Vitals: Temp Pulse Resp BP Pulse Ox 98.5 F 109 H 18 113/74 98 10/28/18 12:05 10/28/18 12:05 10/28/18 12:05 10/28/18 12:05 10/28/18 12:05 General appearance: Present: no acute distress, well-nourished - EENT Eyes: Present: PERRL, EOM intact ENT: hearing intact, clear oral mucosa, dentition normal - Neck Neck: Present: supple, normal ROM - Respiratory Respiratory: bilateral: CTA, negative: rales, rhonchi, wheezing - Cardiovascular Rhythm: regular (tachy) Heart Sounds: Present: S1 & S2 - Extremities Extremities: pulses intact, pulses symmetrical, normal temperature, normal color - Abdominal General gastrointestinal: soft, tender, non-distended, other (hypoactive BS) - Integumentary Integumentary: Present: clear, warm, dry - Psychiatric Psychiatric: appropriate mood/affect, intact judgment & insight, memory intact, cooperative - Neurologic Neurologic: CNII-XII intact, moves all extremities - Allied Health Allied health notes reviewed: nursing, social work, case management Results - Labs CBC & Chem 7: 10/27/18 04:16 10/28/18 10:13 Labs: Laboratory Last Values WBC 12.4 K/mm3 (4.5-11.0) H 10/27/18 04:16 RBC 3.57 M/mm3 (3.65-5.03) L 10/27/18 04:16 Hgb 9.8 gm/dl (10.1-14.3) L 10/27/18 04:16 Hct 30.1 % (30.3-42.9) L 10/27/18 04:16 MCV 84 fl (79-97) 10/27/18 04:16 MCH 28 pg (28-32) 10/27/18 04:16 MCHC 33 % (30-34) 10/27/18 04:16 RDW 14.7 % (13.2-15.2) 10/27/18 04:16 Plt Count 309 K/mm3 (140-440) 10/27/18 04:16 Lymph % (Auto) 3.8 % (13.4-35.0) L 10/25/18 18:11 [place] % (Auto) 7.4 % (0.0-7.3) H 10/25/18 18:11 Eos % (Auto) 0.1 % (0.0-4.3) 10/25/18 18:11 Baso % (Auto) 0.1 % (0.0-1.8) 10/25/18 18:11 Lymph # 0.3 K/mm3 (1.2-5.4) L 10/25/18 18:11 [place] # 0.6 K/mm3 (0.0-0.8) 10/25/18 18:11 Eos # 0.0 K/mm3 (0.0-0.4) 10/25/18 18:11 Baso # 0.0 K/mm3 (0.0-0.1) 10/25/18 18:11 Seg Neutrophils % 88.6 % (40.0-70.0) H 10/25/18 18:11 Seg Neutrophils # 7.7 K/mm3 (1.8-7.7) 10/25/18 18:11 Sodium 136 mmol/L (137-145) L 10/28/18 10:13 Potassium 3.2 mmol/L (3.6-5.0) L 10/28/18 10:13 Chloride 99.3 mmol/L (98-107) 10/28/18 10:13 Carbon Dioxide 27 mmol/L (22-30) 10/28/18 10:13 Anion Gap 13 mmol/L 10/28/18 10:13 BUN 9 mg/dL (7-17) 10/28/18 10:13 Creatinine 0.4 mg/dL (0.7-1.2) L 10/28/18 10:13 Estimated GFR > 60 ml/min 10/28/18 10:13 BUN/Creatinine Ratio 23 % 10/28/18 10:13 Glucose 96 mg/dL (65-100) 10/28/18 10:13 Calcium 7.3 mg/dL (8.4-10.2) L 10/28/18 10:13 Phosphorus 1.50 mg/dL (2.5-4.5) L 10/28/18 10:13 Magnesium 1.90 mg/dL (1.7-2.3) 10/28/18 10:13 Total Bilirubin 0.90 mg/dL (0.1-1.2) 10/25/18 17:07 Direct Bilirubin 0.2 mg/dL (0-0.2) 10/25/18 17:07 Indirect Bilirubin 0.7 mg/dL 10/25/18 17:07 AST 19 units/L (5-40) 10/25/18 17:07 ALT 9 units/L (7-56) 10/25/18 17:07 Alkaline Phosphatase 65 units/L (35-129) 10/25/18 17:07 Total Protein 8.3 g/dL (6.3-8.2) H D 10/25/18 17:07 Albumin 3.1 g/dL (3.9-5) L 10/26/18 05:33 Albumin/Globulin Ratio 1.4 % 10/25/18 17:07 Lipase 49 units/L (13-60) 10/25/18 17:07 Urine Color Yellow (Yellow) 10/26/18 06:26 Urine Turbidity Clear (Clear) 10/26/18 06:26 Urine pH 5.0 (5.0-7.0) 10/26/18 06:26 Ur Specific [place] 1.035 (1.003-1.030) H 10/26/18 06:26 Urine Protein <15 mg/dl mg/dL (Negative) 10/26/18 06:26 Urine Glucose (UA) Neg mg/dL (Negative) 10/26/18 06:26 Urine Ketones 80 mg/dL (Negative) 10/26/18 06:26 Urine Blood Neg (Negative) 10/26/18 06:26 Urine Nitrite Neg (Negative) 10/26/18 06:26 Urine Bilirubin Neg (Negative) 10/26/18 06:26 Urine Urobilinogen < 2.0 mg/dL (<2.0) 10/26/18 06:26 Ur Leukocyte Esterase Neg (Negative) 10/26/18 06:26 Urine WBC (Auto) 8.0 /HPF (0.0-6.0) H 10/26/18 06:26 Urine RBC (Auto) 2.0 /HPF (0.0-6.0) 10/26/18 06:26 Urine Mucus Few /HPF 10/26/18 06:26 - Imaging and Cardiology Chest x-ray: report reviewed Abdominal x-ray: report reviewed
[2018-10-28 17:24] LABS: Hematocrit 27.3 % (30.3-42.9); Hemoglobin 8.9 gm/dl (10.1-14.3); Mean Corpuscular HGB Conc 33 % (30-34); Mean Corpuscular Volume 85 fl (79-97); Platelet Count 331 K/mm3 (140-440); Red Blood Count 3.23 M/mm3 (3.65-5.03); Red Cell Distribution Width 14.4 % (13.2-15.2)
[2018-10-29 01:27] LABS: Hematocrit 26.9 % (30.3-42.9); Hemoglobin 8.8 gm/dl (10.1-14.3); Mean Corpuscular HGB Conc 33 % (30-34); Mean Corpuscular Volume 85 fl (79-97); Platelet Count 338 K/mm3 (140-440); Red Blood Count 3.17 M/mm3 (3.65-5.03); Red Cell Distribution Width 14.6 % (13.2-15.2)
[2018-10-29 01:52] LABS: Alanine Aminotransferase 12 units/L (7-56); Albumin 2.5 g/dL (3.9-5); BUN/Creatinine Ratio 14; Blood Urea Nitrogen 7 mg/dL (7-17); Calcium 7.5 mg/dL (8.4-10.2); Hemolysis Index 5
[2018-10-29] MEDS ORDERED: BENADRYL IV NR (02:44)
[2018-10-29] MEDS: KCL 30 MEQ in D5NS 1,000 ML IV SCH (03:26)
[2018-10-29] MEDS: ZOSYN/NS 4.5GM/100ML 4.5 GM/100 ML VIAL IV SCH ×3 (05:38→21:19)
[2018-10-29] MEDS: TORADOL IV SCH ×2 (05:44)
[2018-10-29] MEDS: FLAGYL 500 MG/100 ML 500 MG/100 ML BAG IV SCH ×3 (06:15→21:59)
[2018-10-29] MEDS: LOVENOX SUB-Q SCH (09:56)
[2018-10-29] MEDS: PROTONIX IV SCH (09:57)
[2018-10-29] MEDS ORDERED: ULTRAM PO PRN (12:15)
--- NOTE | 2018-10-29 12:18 | Progress Note ---
Assessment and Plan - Patient Problems (1) Small bowel obstruction Current Visit: Yes Status: Acute Plan to address problem: Pt stable. s/p ex lap and TAMY - the intestines appear to have clinically opened up. Her NG tube output as high as she has been drinking a lot of water. She reports that she is extremely thirsty. She was upset that no one has given her any food yet. She has had 3 bowel movements and been passing a lot of gas. - Start for liquid diet - remove NG tube - discontinue IV fluids and CLOUD PHYSICIST - continue ambulation -possible D/C home tomorrow As a side note, patient was very upset and frustrated as soon as I walked in the room. She went over a number of issues that she was upset about. I allowed her to "vent" for at least 5 minutes. It seems as though she felt the loss of control in this whole situation. After things calm down we were able to reestablish our relationship. She is very pleased with her overall care and w ith our interaction. I left on good terms with her. Subjective Date of service: 10/29/18 Patient Reports: Positive: pain is less, flatus, bowel movement, other (she is upset that she has not received any forget. No one is explaining anything to her.). Negative: nausea, vomiting Objective Vital Signs - 12hr 10/29/18 10/29/18 00:23 04:11 Temperature 99.4 F 99.0 F Pulse Rate 109 H 103 H Respiratory 18 16 Rate Blood Pressure 130/76 119/74 O2 Sat by Pulse 98 96 Oximetry - General physical appearance no distress, no pain - Eyes normal occular movement - Abdomen soft, not tender, bowel sounds hypoactive, distended (mild), not guarding, not rigid, surgical scars (C/D/I) - Integumentary no rash, no growths, no abnormal pigmentation - Psychiatric oriented to time, oriented to person, oriented to place, speech is normal, memory intact - Labs 10/29/18 01:06 10/29/18 01:06 Diabetes panel 10/29/18 Range/Units 01:06 Sodium 138 (137-145) mmol/L Potassium 4.1 D (3.6-5.0) mmol/L Chloride 102.5 (98-107) mmol/L Carbon Dioxide 27 (22-30) mmol/L BUN 7 (7-17) mg/dL Creatinine 0.5 L (0.7-1.2) mg/dL Glucose 85 (65-100) mg/dL Calcium 7.5 L (8.4-10.2) mg/dL AST 26 (5-40) units/L ALT 12 (7-56) units/L Alkaline Phosphatase 42 (35-129) units/L Total Protein 5.3 L D (6.3-8.2) g/dL Albumin 2.5 L (3.9-5) g/dL Calcium panel 10/29/18 Range/Units 01:06 Calcium 7.5 L (8.4-10.2) mg/dL Phosphorus 2.70 D (2.5-4.5) mg/dL Albumin 2.5 L (3.9-5) g/dL Pituitary panel 10/29/18 Range/Units 01:06 Sodium 138 (137-145) mmol/L Potassium 4.1 D (3.6-5.0) mmol/L Chloride 102.5 (98-107) mmol/L Carbon Dioxide 27 (22-30) mmol/L BUN 7 (7-17) mg/dL Creatinine 0.5 L (0.7-1.2) mg/dL Glucose 85 (65-100) mg/dL Calcium 7.5 L (8.4-10.2) mg/dL Adrenal panel 10/29/18 Range/Units 01:06 Sodium 138 (137-145) mmol/L Potassium 4.1 D (3.6-5.0) mmol/L Chloride 102.5 (98-107) mmol/L Carbon Dioxide 27 (22-30) mmol/L BUN 7 (7-17) mg/dL Creatinine 0.5 L (0.7-1.2) mg/dL Glucose 85 (65-100) mg/dL Calcium 7.5 L (8.4-10.2) mg/dL Total Bilirubin 0.40 (0.1-1.2) mg/dL AST 26 (5-40) units/L ALT 12 (7-56) units/L Alkaline Phosphatase 42 (35-129) units/L Total Protein 5.3 L D (6.3-8.2) g/dL Albumin 2.5 L (3.9-5) g/dL
--- NOTE | 2018-10-29 15:46 | Progress Note ---
Assessment and Plan High-grade SBO s/p expl. laparotomy Had bowel movement last night. NG tube removed. Acute Hypokalemia -corrected Recheck Significant Hypophosphatemia - corrected recheck in am GERD add Protonix BID Recent Ectopic post op care Post op abd pain' optimal pain control Further pt mgt per hospital course Disposition Plan: per hospital course Total Time Spent with Patient (Minutes): 30 mins spent Subjective Date of service: 10/29/18 Principal diagnosis: small bowel obstruction status post Expl Lap, hypokalemia, hypomagnesemia Interval history: Lying in bed. Says that she has passed flatus and had bowel movements. Completely pseudostrabismus hungry once in the NG tube removed so that she can eat. Surgeon by the bedside at the time of this evaluation, agreed with removal of NG tube Objective - Exam Narrative Exam: Constitutional: NG tube removed by the surgeon. In no distress Head: Normocephalic atraumatic Eyes: Pupils are equal round and reactive to light Nose: No enlarged turbinates, no septal deviation. Mouth: Moist mucous membranes. Neck: Supple no thyromegaly. No bruit. No JVD Heart: Regular rate and rhythm, S1-S2 normal. No rubs murmurs or gallop Lungs: Clear to auscultation bilaterally. no rales or rhonchi Abdomen: Soft, nontender. Bowel sound are present. Dry surgical wound sites Extremities: No edema, no cyanosis, no clubbing. Neuro: Alert oriented Oriented x3. No focal sensory or motor deficit. Skin: No rashes or hyperpigmented spots Musculoskeletal system: No joint pain or swelling Hematological: No petechia or subcutanous hemorrhages. Immunological: No multiple septic spots on the skin Lymphatic: No generalized lymphadenopathy Psychiatry: Euthymic. Calm. - Constitutional Vitals: Vital Signs - 12hr 10/29/18 04:11 Temperature 99.0 F Pulse Rate 103 H Respiratory 16 Rate Blood Pressure 119/74 O2 Sat by Pulse 96 Oximetry - Labs CBC & Chem 7: 10/29/18 01:06 10/29/18 01:06 Labs: Abnormal lab results 10/28/18 10/29/18 10/29/18 Range/Units 16:41 01:06 01:06 WBC 13.4 H 12.9 H (4.5-11.0) K/mm3 RBC 3.23 L 3.17 L (3.65-5.03) M/mm3 Hgb 8.9 L 8.8 L (10.1-14.3) gm/dl Hct 27.3 L 26.9 L (30.3-42.9) % Creatinine 0.5 L (0.7-1.2) mg/dL Calcium 7.5 L (8.4-10.2) mg/dL Total Protein 5.3 L D (6.3-8.2) g/dL Albumin 2.5 L (3.9-5) g/dL
[2018-10-29] MEDS: MYLICON PO PRN (21:18)
[2018-10-29] MEDS: ZOFRAN IV PRN (21:57)
[2018-10-29] MEDS: MORPHINE IV PRN (21:58)
[2018-10-29] MEDS: ATIVAN IV PRN (22:34)
[2018-10-30] MEDS: MORPHINE IV PRN ×6 (00:48→23:20)
[2018-10-30] MEDS: MYLICON PO PRN ×3 (05:10→17:36)
[2018-10-30] MEDS: ZOSYN/NS 4.5GM/100ML 4.5 GM/100 ML VIAL IV SCH ×3 (05:13→21:54)
[2018-10-30] MEDS: FLAGYL 500 MG/100 ML 500 MG/100 ML BAG IV SCH ×3 (05:33→22:33)
[2018-10-30] MEDS: ZOFRAN IV PRN (10:33)
[2018-10-30] MEDS: LOVENOX SUB-Q SCH (10:33)
--- NOTE | 2018-10-30 12:11 | Progress Note ---
Assessment and Plan - Patient Problems (1) Small bowel obstruction Current Visit: Yes Status: Acute Plan to address problem: Pt stable. s/p ex lap and TAMY - I think part of her distention is related to gas build up from the lactose containing liquids. Will adjust diet to lactose controlled. Overall, looks very good. Will order protonix for reflux. - continue full liquid diet with lactose controlled - Order Ensure shakes - would like prescription when discharged - continue to ambulate -possible D/C home tomorrow Subjective Date of service: 10/30/18 Patient Reports: Positive: feels better, tolerating liquids well (however, she is lactose intolerant. The milkshake tasted good, but than she had more bloating and reflux afterwards. ), bowel movement Objective Vital Signs - 12hr 10/30/18 10/30/18 00:29 05:24 Temperature 98.7 F 98.4 F Pulse Rate 88 94 H Respiratory 18 17 Rate Blood Pressure 114/80 Blood Pressure 136/86 [Right] O2 Sat by Pulse 99 Oximetry - General physical appearance no distress, no pain, other (looks much better. ) - Respiratory normal expansion, normal respiratory effort - Abdomen soft, not tender, bowel sounds hypoactive, distended (more so than yesterday), not guarding, not rigid, surgical scars (Incisions are C/D/I) - Integumentary no rash, no growths, no abnormal pigmentation - Psychiatric oriented to time, oriented to person, oriented to place, speech is normal, memory intact - Labs 10/29/18 01:06 10/29/18 01:06
[2018-10-30] MEDS ORDERED: PROTONIX IV ONE (15:00)
--- NOTE | 2018-10-30 17:23 | Progress Note ---
Assessment and Plan 37 year old female with past medical hx of anxiety, migraine headaches, tubal ligation and left breast lump removal along with recent surgery for ectopic presents with abdominal pain and noted to have high grade SBO requiring Exploratory laparotomy, lysis of adhesions, repair of small bowel serosal tear. Now tolerating clear liquids. Lekocytosis- Reactive High-grade SBO s/p expl. laparotomy Had bowel movement last night. NG tube removed. Tolerating clear liquids. Advanced as tolerated Significant Hypophosphatemia - corrected recheck in am GERD add Protonix BID Recent Ectopic post op care Post op abd pain' optimal pain control Further pt mgt per hospital course Disposition Plan: D/c home in 1-2 days after tolerating regular diet Total Time Spent with Patient (Minutes): 30 mins spent Subjective Date of service: 10/30/18 Principal diagnosis: small bowel obstruction status post Expl Lap, hypokalemia, hypomagnesemia Interval history: Lying in bed. Says that she has passed flatus and had bowel movements. Tolerating clear liquid Objective - Exam Narrative Exam: Constitutional: NG tube removed by the surgeon. In no distress Head: Normocephalic atraumatic Eyes: Pupils are equal round and reactive to light Nose: No enlarged turbinates, no septal deviation. Mouth: Moist mucous membranes. Neck: Supple no thyromegaly. No bruit. No JVD Heart: Regular rate and rhythm, S1-S2 normal. No rubs murmurs or gallop Lungs: Clear to auscultation bilaterally. no rales or rhonchi Abdomen: Soft, nontender. Bowel sound are present. Dry surgical wound sites Extremities: No edema, no cyanosis, no clubbing. Neuro: Alert oriented Oriented x3. No focal sensory or motor deficit. Skin: No rashes or hyperpigmented spots Musculoskeletal system: No joint pain or swelling Hematological: No petechia or subcutanous hemorrhages. Immunological: No multiple septic spots on the skin Lymphatic: No generalized lymphadenopathy Psychiatry: Euthymic. Calm. - Constitutional Vitals: Vital Signs - 12hr 10/30/18 05:24 Temperature 98.4 F Pulse Rate 94 H Respiratory 17 Rate Blood Pressure 136/86 [Right] - Labs CBC & Chem 7: 10/29/18 01:06 10/29/18 01:06
[2018-10-30] MEDS: ATIVAN IV PRN (21:53)
[2018-10-31 04:37] LABS: Basophils % (Auto) 0.3 % (0.0-1.8); Eosinophils # (Auto) 0.1 K/mm3 (0.0-0.4); Eosinophils % (Auto) 0.6 % (0.0-4.3); Hematocrit 26.6 % (30.3-42.9); Hemoglobin 8.9 gm/dl (10.1-14.3); Lymphocytes # (Auto) 1.5 K/mm3 (1.2-5.4); Lymphocytes % (Auto) 9.7 % (13.4-35.0); Mean Corpuscular HGB Conc 33 % (30-34); Mean Corpuscular Volume 84 fl (79-97); Monocytes # (Auto) 1.1 K/mm3 (0.0-0.8); Monocytes % (Auto) 7.4 % (0.0-7.3); Platelet Count 386 K/mm3 (140-440); Red Blood Count 3.18 M/mm3 (3.65-5.03); Red Cell Distribution Width 15.1 % (13.2-15.2)
[2018-10-31] MEDS: MYLICON PO PRN ×3 (04:46→20:51)
[2018-10-31] MEDS: MORPHINE IV PRN (04:47)
[2018-10-31 04:56] LABS: Alanine Aminotransferase 28 units/L (7-56); Albumin 2.9 g/dL (3.9-5); BUN/Creatinine Ratio 8; Blood Urea Nitrogen 5 mg/dL (7-17); Calcium 7.9 mg/dL (8.4-10.2); Hemolysis Index 8
[2018-10-31] MEDS: ZOSYN/NS 4.5GM/100ML 4.5 GM/100 ML VIAL IV SCH (05:39)
[2018-10-31] MEDS: FLAGYL 500 MG/100 ML 500 MG/100 ML BAG IV SCH (06:44)
[2018-10-31] MEDS: LOVENOX SUB-Q SCH (09:49)
[2018-10-31] MEDS: PROTONIX PO SCH (09:49)
[2018-10-31] MEDS: ATIVAN IV PRN ×2 (10:06→20:42)
--- NOTE | 2018-10-31 12:47 | Progress Note ---
Assessment and Plan 37 yo F s/p Exploratory laparotomy, lysis of adhesions, repair of small bowel serosal tear, POD 6 for high grade SBO Plan: 1. adv to soft diet - lactose free 2. gentle IVF 3. IS/pulm toilet 4. PPI 5. simethicone prn for gas pain 6. strict I/Os 7. OOB/ambulate 8. DVT ppx - lovenox 9. prn pain control - add tylenol #3 and morphine prn 10. abd binder for comfort Pt still with abdominal distension. Once this improves, will plan for dc home. D/W Dr. Smalls Thank you, please call with questions Subjective Date of service: 10/31/18 Narrative: Pt seen and examined. Nno acute complaints. Still having gas pains from time to time which are relieved by walking. She is passing flatus and having liquid BMs. No blood in the BMs. No f/c. Tolerating a full liquid diet. Has not vomited. Objective Vital Signs - 12hr 10/31/18 10/31/18 04:29 08:17 Temperature 98.4 F 98.1 F Pulse Rate 109 H 111 H Respiratory 16 19 Rate Blood Pressure 126/75 137/92 O2 Sat by Pulse 100 100 Oximetry - General physical appearance Narrative Exam: Gen: AAOx3. NAD CV: s1, S2+ Resp: even and unlabored Abd: soft, distended, NT. incisions c/d/i with rachell in place. No r/r/g. Abdominal binder in place Ext: no c/c/e - Labs 10/31/18 04:05 10/31/18 04:05 Diabetes panel 10/31/18 Range/Units 04:05 Sodium 135 L (137-145) mmol/L Potassium 3.5 L (3.6-5.0) mmol/L Chloride 97.4 L (98-107) mmol/L Carbon Dioxide 22 (22-30) mmol/L BUN 5 L (7-17) mg/dL Creatinine 0.6 L (0.7-1.2) mg/dL Glucose 74 (65-100) mg/dL Calcium 7.9 L (8.4-10.2) mg/dL AST 61 H (5-40) units/L ALT 28 (7-56) units/L Alkaline Phosphatase 48 (35-129) units/L Total Protein 5.6 L (6.3-8.2) g/dL Albumin 2.9 L (3.9-5) g/dL Calcium panel 10/31/18 Range/Units 04:05 Calcium 7.9 L (8.4-10.2) mg/dL Albumin 2.9 L (3.9-5) g/dL Pituitary panel 10/31/18 Range/Units 04:05 Sodium 135 L (137-145) mmol/L Potassium 3.5 L (3.6-5.0) mmol/L Chloride 97.4 L (98-107) mmol/L Carbon Dioxide 22 (22-30) mmol/L BUN 5 L (7-17) mg/dL Creatinine 0.6 L (0.7-1.2) mg/dL Glucose 74 (65-100) mg/dL Calcium 7.9 L (8.4-10.2) mg/dL Adrenal panel 10/31/18 Range/Units 04:05 Sodium 135 L (137-145) mmol/L Potassium 3.5 L (3.6-5.0) mmol/L Chloride 97.4 L (98-107) mmol/L Carbon Dioxide 22 (22-30) mmol/L BUN 5 L (7-17) mg/dL Creatinine 0.6 L (0.7-1.2) mg/dL Glucose 74 (65-100) mg/dL Calcium 7.9 L (8.4-10.2) mg/dL Total Bilirubin 0.40 (0.1-1.2) mg/dL AST 61 H (5-40) units/L ALT 28 (7-56) units/L Alkaline Phosphatase 48 (35-129) units/L Total Protein 5.6 L (6.3-8.2) g/dL Albumin 2.9 L (3.9-5) g/dL
[2018-10-31] MEDS: TYLENOL #3 PO PRN (17:25)
[2018-10-31] MEDS ORDERED: BENADRYL IV PRN (22:53)
[2018-11-01] MEDS: TYLENOL #3 PO PRN (00:26)
[2018-11-01] MEDS: ATIVAN IV PRN (03:48)
[2018-11-01] MEDS: MYLICON PO PRN (03:48)
[2018-11-01] MEDS: MORPHINE IV PRN (06:56)
[2018-11-01 08:28] LABS: Hematocrit 26.8 % (30.3-42.9); Hemoglobin 8.7 gm/dl (10.1-14.3); Mean Corpuscular HGB Conc 32 % (30-34); Mean Corpuscular Volume 85 fl (79-97); Platelet Count 423 K/mm3 (140-440); Red Blood Count 3.16 M/mm3 (3.65-5.03); Red Cell Distribution Width 14.9 % (13.2-15.2)
[2018-11-01] MEDS: PROTONIX PO SCH (08:38)
[2018-11-01] MEDS: LOVENOX SUB-Q SCH (08:39)
[2018-11-01 08:43] LABS: Alanine Aminotransferase 29 units/L (7-56); Albumin 2.8 g/dL (3.9-5); BUN/Creatinine Ratio 3; Blood Urea Nitrogen 2 mg/dL (7-17); Calcium 7.8 mg/dL (8.4-10.2); Hemolysis Index 3
[2018-11-01 09:24] LABS: Basophils % (Manual) 0 % (0.0-1.8); Myelocytes # (Manual) 0.4 K/mm3; Total Cells Counted 100
[2018-11-01 09:25] LABS: Anisocytosis 1+; Platelet Estimate Consistent w Auto; Poikilocytosis 1+
--- NOTE | 2018-11-01 10:25 | Progress Note ---
Assessment and Plan 37 yo F s/p Exploratory laparotomy, lysis of adhesions, repair of small bowel serosal tear, POD 7 for high grade SBO Plan: 1. soft diet - lactose free 2. gentle IVF 3. IS/pulm toilet 4. PPI 5. simethicone prn for gas pain 6. strict I/Os 7. OOB/ambulate 8. DVT ppx - lovenox 9. prn pain control - tylenol #3 and morphine prn 10. abd binder for comfort 11. monistat ordered Pt's distension is slowly improving. She is tolerating a soft diet without n/v. She is having bowel function. OK to DC home today and patient to follow up in surgery clinic in 1 week. D/W Dr. Gonzalez Thank you, please call with questions Subjective Date of service: 11/01/18 Narrative: Pt seen and examined. c/o swelling in the vulva region which she feels may be related to yeast infection. No f/c. No n/v. Tolerating a diet. Having BMs and flatus. She is ambulating on her own. Objective Vital Signs - 12hr 11/01/18 11/01/18 00:40 04:40 Temperature 99.2 F 98.4 F Pulse Rate 105 H 101 H Respiratory 18 16 Rate Blood Pressure 129/88 126/83 O2 Sat by Pulse 100 100 Oximetry - General physical appearance Narrative Exam: Gen: AAOx3. NAD CV: s1, S2+ Resp: even and unlabored Abd: soft, moderately distended, NT. incisions c/d/i. rachell in place. Abdominal binder in place Ext: no c/c/e - Labs 11/01/18 06:44 11/01/18 06:44 Diabetes panel 11/01/18 Range/Units 06:44 Sodium 136 L (137-145) mmol/L Potassium 3.4 L (3.6-5.0) mmol/L Chloride 97.5 L (98-107) mmol/L Carbon Dioxide 25 (22-30) mmol/L BUN 2 L (7-17) mg/dL Creatinine 0.6 L (0.7-1.2) mg/dL Glucose 82 (65-100) mg/dL Calcium 7.8 L (8.4-10.2) mg/dL AST 47 H (5-40) units/L ALT 29 (7-56) units/L Alkaline Phosphatase 45 (35-129) units/L Total Protein 5.5 L (6.3-8.2) g/dL Albumin 2.8 L (3.9-5) g/dL Calcium panel 11/01/18 Range/Units 06:44 Calcium 7.8 L (8.4-10.2) mg/dL Albumin 2.8 L (3.9-5) g/dL Pituitary panel 11/01/18 Range/Units 06:44 Sodium 136 L (137-145) mmol/L Potassium 3.4 L (3.6-5.0) mmol/L Chloride 97.5 L (98-107) mmol/L Carbon Dioxide 25 (22-30) mmol/L BUN 2 L (7-17) mg/dL Creatinine 0.6 L (0.7-1.2) mg/dL Glucose 82 (65-100) mg/dL Calcium 7.8 L (8.4-10.2) mg/dL Adrenal panel 11/01/18 Range/Units 06:44 Sodium 136 L (137-145) mmol/L Potassium 3.4 L (3.6-5.0) mmol/L Chloride 97.5 L (98-107) mmol/L Carbon Dioxide 25 (22-30) mmol/L BUN 2 L (7-17) mg/dL Creatinine 0.6 L (0.7-1.2) mg/dL Glucose 82 (65-100) mg/dL Calcium 7.8 L (8.4-10.2) mg/dL Total Bilirubin 0.30 (0.1-1.2) mg/dL AST 47 H (5-40) units/L ALT 29 (7-56) units/L Alkaline Phosphatase 45 (35-129) units/L Total Protein 5.5 L (6.3-8.2) g/dL Albumin 2.8 L (3.9-5) g/dL
[2018-11-01 10:50] VITALS: BP 110/70
[2018-11-01] MEDS ORDERED: MONISTAT VG SCH (22:00)
--- NOTE | 2018-11-02 16:32 | Discharge Summary ---
Providers - Providers Date of Admission: 10/25/18 20:11 Date of discharge: 11/01/18 Attending physician: ARYAN STEPHEN 10/25/18 20:06 Consult to Physician [CONS] Stat Comment: Dr. Ruiz spoke with Dr. Greer @ 2000 Consulting Provider: INESSA GREER Physician Instructions: Reason For Exam: high-grade small bowel obstruction Primary care physician: [facility] Hospitalization Reason for admission: High grade SBO, possible pneumonia, hypokalemia, possible volvulus Condition: Stable Pertinent studies: CT abdomen and pelvis: High-grade small bowel obstruction with possible infiltrates Procedures: Exploratory laparotomy, lysis of adhesions and repair of small bowel serosal tear Hospital course: Final diagnoses: 1. high grade SBO likely secondary to adhesions 2. Hypokalemia 3. Possible pneumonia 4. Vaginal candidiasis Hospital course: On admission, patient was placed on bowel rest and started on IV fluid in addition to when necessary narcotics and protonix. She also received potassium supplements for the hypokalemia as well as IV antibiotics for the possible pneumonia. Thereafter, she underwent surgical intervention without intra- operative complications. Post procedure, she was monitored without any adverse events and was later cleared by the surgery team for discharge with clinic follow-up. On discharge, she was given antifungal agent for vaginal candidiasis. Disposition: DC-01 TO HOME OR SELFCARE Time spent for discharge: 35 MINUTES Core Measure Documentation - Palliative Care Palliative Care/ Comfort Measures: Not Applicable - Core Measures Any of the following diagnoses?: none Exam - Constitutional Vitals: Temp Pulse Resp BP Pulse Ox 98.7 F 102 H 18 110/70 98 11/01/18 08:00 11/01/18 08:00 11/01/18 08:00 11/01/18 08:00 11/01/18 07:30 General appearance: Present: no acute distress - EENT Eyes: Present: PERRL, EOM intact ENT: hearing intact, clear oral mucosa - Neck Neck: Present: supple, normal ROM - Respiratory Respiratory effort: normal Respiratory: bilateral: CTA - Cardiovascular Rhythm: regular Heart Sounds: Present: S1 & S2. Absent: rub, click - Extremities Extremity abnormal: other (trace edema in BLE) Peripheral Pulses: within normal limits - Abdominal General gastrointestinal: Present: soft, tender (mild and generalized), distended (mildly), normal bowel sounds - Integumentary Integumentary: Present: clear, warm, dry - Musculoskeletal Musculoskeletal: gait normal, strength equal bilaterally - Psychiatric Psychiatric: appropriate mood/affect, intact judgment & insight - Neurologic Neurologic: CNII-XII intact, moves all extremities Plan Follow up with: [facility] MD MAURICIO [Primary Care Provider] - 3-5 Days Prescriptions: Acetaminophen/Codeine [Tylenol /Codeine # 3 tab] 1 tab PO Q6H PRN #30 tab PRN Reason: Pain , Severe (7-10) Ondansetron [Zofran Odt] 4 mg PO Q6HR PRN #30 tab.rapdis PRN Reason: Nausea Pantoprazole [Protonix TAB] 20 mg PO QDAY #30 tablet.
== END 2018-11-01 14:21 | disposition home or self-care (01) | DRG 329 ==
LOC: ED 16:17 → 3B-SURG 20:11
PROVIDERS: ADMIT Internal Medicine; ATTEND Internal Medicine
PROC: 0DQA0ZZ Repair Jejunum, Open Approach (ICD-10-PCS; principal; 2018-10-26)
PROC: 0D9670Z Drainage of Stomach with Drainage Device, Via Natural or Artificial Opening (ICD-10-PCS; 2018-10-26)
PROC: 0DN80ZZ Release Small Intestine, Open Approach (ICD-10-PCS; 2018-10-26)
DX: K56.50 Intestinal adhesions [bands], unspecified as to partial versus complete obstruction (principal); K65.9 Peritonitis, unspecified; J18.9 Pneumonia, unspecified organism; K21.9 Gastro-esophageal reflux disease without esophagitis; E87.6 Hypokalemia; G43.909 Migraine, unspecified, not intractable, without status migrainosus; F41.9 Anxiety disorder, unspecified; E86.0 Dehydration; K56.2 Volvulus; R00.0 Tachycardia, unspecified; E83.39 Other disorders of phosphorus metabolism; E83.42 Hypomagnesemia; B37.3 Candidiasis of vulva and vagina; Z88.8 Allergy status to other drugs, medicaments and biological substances; Z98.51 Tubal ligation status; Z90.721 Acquired absence of ovaries, unilateral; Z83.3 Family history of diabetes mellitus; Z82.49 Family history of ischemic heart disease and other diseases of the circulatory system
CPT/HCPCS: 36415; 74177; 80048; 80053; 80076; 81001; 82040; 83690; 83735; 84100; 85007; 85025; 85027; 87040; 96365; 96375; 96376; 99291; G0378; C9113; J1100; J1170; J1200; J1650; J1885; J2060; J2270; J2405; J2543; J2704; J2710; J3010; J3480; J7030; J7040; J7042; Q9967

== ENCOUNTER 2018-11-09 13:00 | Emergency (ER) | payer MEDICAID ==
--- NOTE | 2018-11-09 13:30 | Emergency Department Report ---
Blank Doc - Documentation Documentation: Here for knot on left thigh. Recent surgery on 10/19/18 for csection and 10/25/18 for bowel obstruction. Spoke to Dr. Merino she instructed her to come to ER. This initial assessment diagnostic orders/clinical plan/treatment (s) is/Are subject change based on patient's health status, clinical progression and re- assessment by fellow clinical providers in the ED. Further treatment and work-up at subsequent clinical providers discretion. Patient/guardians urged not to elope from s their condition may be serious if not clinically assessed and managed. Inital order include:
[2018-11-09 14:23] LABS: Basophils # (Auto) 0.1 K/mm3 (0.0-0.1); Basophils % (Auto) 1.3 % (0.0-1.8); Eosinophils # (Auto) 0.1 K/mm3 (0.0-0.4); Eosinophils % (Auto) 1.3 % (0.0-4.3); Hematocrit 28.7 % (30.3-42.9); Hemoglobin 9.4 gm/dl (10.1-14.3); Lymphocytes # (Auto) 1.5 K/mm3 (1.2-5.4); Lymphocytes % (Auto) 21.4 % (13.4-35.0); Mean Corpuscular HGB Conc 33 % (30-34); Mean Corpuscular Volume 85 fl (79-97); Monocytes # (Auto) 0.5 K/mm3 (0.0-0.8); Monocytes % (Auto) 6.3 % (0.0-7.3); Platelet Count 534 K/mm3 (140-440); Red Blood Count 3.39 M/mm3 (3.65-5.03); Red Cell Distribution Width 15.2 % (13.2-15.2)
[2018-11-09 14:32] LABS: INR 0.95 (0.87-1.13)
[2018-11-09 14:41] LABS: Alanine Aminotransferase 14 units/L (7-56); Albumin 3.7 g/dL (3.9-5); BUN/Creatinine Ratio 10; Blood Urea Nitrogen 5 mg/dL (7-17); Calcium 8.7 mg/dL (8.4-10.2); Hemolysis Index 14
[2018-11-09 14:55] LABS: Bilirubin,Urine NEG (Negative); Blood,Urine NEG (Negative); Color,Urine Yellow (Yellow); Mucus,Urine 3+ /HPF; Protein,Urine <15 mg/dL mg/dL (Negative)
--- NOTE | 2018-11-09 15:47 | Emergency Department Report ---
ED Extremity Problem HPI - General Chief complaint: Extremity Injury, Lower Stated complaint: POSSIBLE BLOOD CLOT LT LEG/POST OP Time Seen by Provider: 11/09/18 13:25 Source: patient Mode of arrival: Ambulatory Limitations: No Limitations - History of Present Illness Initial comments: Patient is a 38-year-old female who is presenting today secondary to a knot that she's feeling of the scan on her bilateral lower extremity. The patient was here on 10/20/2018 for an ectopic . Patient was taken to the OR for surgical repair. Patient returned again on 10/25/2018 for small brown obstruction and had surgery at that time as well. Patient was discharged on 11/01/2018. Patient woke up this morning feeling some nodularity on the skin on bilateral thighs. Patient states these are tender. Patient followed up with her surgeon and was told to come to the emergency department for evaluation. Patient states the pain is a throbbing sensation is 7 out of 10 in severity. Patient denies having any acute shortness of breath or chest pain. Patient does state that she is nervous more so secondary to the multiple medical problems she's had lately and worried that something may be wrong. Severity scale (0 -10): 7 Associated Symptoms: denies: chest pain, shortness of breath, fever - Related Data Previous Rx's Medication Instructions Recorded Last Taken Type ALBUTEROL Inhaler (OR & NICU) 2 puff IH QID PRN #1 inhalation 01/05/18 Unknown Rx [ProAir HFA Inhaler] Acetaminophen/Codeine [Tylenol 1 tab PO Q6H PRN #14 tab 10/23/18 Unknown Rx /Codeine # 3 tab] Docusate Sodium [Colace] 100 mg PO BID PRN 10 Days #20 10/23/18 Unknown Rx capsule Ibuprofen 800 mg PO Q6H PRN 10 Days #30 10/23/18 Unknown Rx tablet MDD 3200mg Acetaminophen/Codeine [Tylenol 1 tab PO Q6H PRN #30 tab 11/01/18 Unknown Rx /Codeine # 3 tab] Ondansetron [Zofran Odt] 4 mg PO Q6HR PRN #30 tab.yosi 11/01/18 Unknown Rx Pantoprazole [Protonix TAB] 20 mg PO QDAY #30 tablet. 11/01/18 Unknown Rx Allergies Allergy/AdvReac Type Severity Reaction Status Date / Time hydrocodone bitartrate Allergy Vomiting Verified 11/09/18 13:02 [From Vicodin] ketorolac [From Toradol] Allergy Vomiting Verified 11/09/18 13:02 oxycodone HCl [From Percocet] Allergy Vomiting Verified 11/09/18 13:02 ED Review of Systems ROS: Stated complaint: POSSIBLE BLOOD CLOT LT LEG/POST OP Other details as noted in HPI Comment: All other systems reviewed and negative ED Past Medical Hx - Past Medical History Hx Hypertension: No (pericardial fluid on x-ray) Hx Headaches / Migraines: Yes (migraines) Hx Psychiatric Treatment: Yes (anxiety) Hx HIV: No Additional medical history: right ovarian cyst, scoliosis, seasonal allergies,bowel obstruction - Surgical History Additional Surgical History: tubal ligation, lump removed from left breast, Had a tubaligation and report had 2 miscarriages 1nd 12-01-2015 since having a tubaligation, - Social History Smoking Status: Never Smoker Substance Use Type: None - Medications Home Medications: Home Medications Medication Instructions Recorded Confirmed Last Taken Type ALBUTEROL Inhaler (OR & NICU) 2 puff IH QID PRN #1 inhalation 01/05/18 10/25/18 Unknown Rx [ProAir HFA Inhaler] Acetaminophen/Codeine [Tylenol 1 tab PO Q6H PRN #14 tab 10/23/18 10/25/18 Unkno wn Rx /Codeine # 3 tab] Docusate Sodium [Colace] 100 mg PO BID PRN 10 Days #20 10/23/18 10/25/18 Unknown Rx capsule Ibuprofen 800 mg PO Q6H PRN 10 Days #30 10/23/18 10/25/18 Unknown Rx tablet MDD 3200mg Acetaminophen/Codeine [Tylenol 1 tab PO Q6H PRN #30 tab 11/01/18 Unknown Rx /Codeine # 3 tab] Ondansetron [Zofran Odt] 4 mg PO Q6HR PRN #30 tab.rapdis 11/01/18 Unknown Rx Pantoprazole [Protonix TAB] 20 mg PO QDAY #30 tablet. 11/01/18 Unknown Rx ED Physical Exam - General Limitations: No Limitations General appearance: alert, in no apparent distress - Head Head exam: Present: atraumatic, normocephalic - Eye Eye exam: Present: normal appearance - ENT ENT exam: Present: mucous membranes moist - Neck Neck exam: Present: normal inspection - Respiratory Respiratory exam: Present: normal lung sounds bilaterally. Absent: respiratory distress - Cardiovascular Cardiovascular Exam: Present: regular rate, normal rhythm. Absent: systolic murmur, diastolic murmur, rubs, gallop - GI/Abdominal GI/Abdominal exam: Present: soft, normal bowel sounds - Extremities Exam Extremities exam: Present: normal inspection, tenderness (the patient has some tenderness and nodularity under scan in the right anterior thigh bilaterally. There is no overlying erythema to the skin. There is no induration.) - Back Exam Back exam: Present: normal inspection - Neurological Exam Neurological exam: Present: alert, oriented X3 - Psychiatric Psychiatric exam: Present: normal affect, normal mood - Skin Skin exam: Present: warm, dry, intact, normal color. Absent: rash ED Course Vital Signs 11/09/18 13:26 Temperature 98.6 F Pulse Rate 103 H Respiratory 18 Rate Blood Pressure 126/34 O2 Sat by Pulse 100 Oximetry ED Medical Decision Making - Lab Data Result diagrams: 11/09/18 13:48 11/09/18 13:48 Lab Results 11/09/18 11/09/18 11/09/18 Range/Units 13:48 13:48 13:48 WBC 7.2 (4.5-11.0) K/mm3 RBC 3.39 L (3.65-5.03) M/mm3 Hgb 9.4 L (10.1-14.3) gm/dl Hct 28.7 L (30.3-42.9) % MCV 85 (79-97) fl MCH 28 (28-32) pg MCHC 33 (30-34) % RDW 15.2 (13.2-15.2) % Plt Count 534 H (140-440) K/mm3 Lymph % (Auto) 21.4 (13.4-35.0) % [place] % (Auto) 6.3 (0.0-7.3) % Eos % (Auto) 1.3 (0.0-4.3) % Baso % (Auto) 1.3 (0.0-1.8) % Lymph # 1.5 (1.2-5.4) K/mm3 [place] # 0.5 (0.0-0.8) K/mm3 Eos # 0.1 (0.0-0.4) K/mm3 Baso # 0.1 (0.0-0.1) K/mm3 Seg Neutrophils % 69.7 (40.0-70.0) % Seg Neutrophils # 5.0 (1.8-7.7) K/mm3 PT 13.2 (12.2-14.9) Sec. INR 0.95 (0.87-1.13) Sodium 137 (137-145) mmol/L Potassium 4.4 (3.6-5.0) mmol/L Chloride 97.6 L (98-107) mmol/L Carbon Dioxide 29 (22-30) mmol/L Anion Gap 15 mmol/L BUN 5 L (7-17) mg/dL Creatinine 0.5 L (0.7-1.2) mg/dL Estimated GFR > 60 ml/min BUN/Creatinine Ratio 10 % Glucose 97 (65-100) mg/dL Calcium 8.7 (8.4-10.2) mg/dL Total Bilirubin 0.20 (0.1-1.2) mg/dL AST 21 (5-40) units/L ALT 14 (7-56) units/L Alkaline Phosphatase 52 (35-129) units/L Total Protein 6.7 (6.3-8.2) g/dL Albumin 3.7 L (3.9-5) g/dL Albumin/Globulin Ratio 1.2 % Urine Color (Yellow) Urine Turbidity (Clear) Urine pH (5.0-7.0) Ur Specific [place] (1.003-1.030) Urine Protein (Negative) mg/dL Urine Glucose (UA) (Negative) mg/dL Urine Ketones (Negative) mg/dL Urine Blood (Negative) Urine Nitrite (Negative) Urine Bilirubin (Negative) Urine Urobilinogen (<2.0) mg/dL Ur Leukocyte Esterase (Negative) Urine WBC (Auto) (0.0-6.0) /HPF Urine RBC (Auto) (0.0-6.0) /HPF U Epithel Cells (Auto) (0-13.0) /HPF Urine Mucus /HPF 11/09/18 Range/Units 14:36 WBC (4.5-11.0) K/mm3 RBC (3.65-5.03) M/mm3 Hgb (10.1-14.3) gm/dl Hct (30.3-42.9) % MCV (79-97) fl MCH (28-32) pg MCHC (30-34) % RDW (13.2-15.2) % Plt Count (140-440) K/mm3 Lymph % (Auto) (13.4-35.0) % [place] % (Auto) (0.0-7.3) % Eos % (Auto) (0.0-4.3) % Baso % (Auto) (0.0-1.8) % Lymph # (1.2-5.4) K/mm3 [place] # (0.0-0.8) K/mm3 Eos # (0.0-0.4) K/mm3 Baso # (0.0-0.1) K/mm3 Seg Neutrophils % (40.0-70.0) % Seg Neutrophils # (1.8-7.7) K/mm3 PT (12.2-14.9) Sec. INR (0.87-1.13) Sodium (137-145) mmol/L Potassium (3.6-5.0) mmol/L Chloride (98-107) mmol/L Carbon Dioxide (22-30) mmol/L Anion Gap mmol/L BUN (7-17) mg/dL Creatinine (0.7-1.2) mg/dL Estimated GFR ml/min BUN/Creatinine Ratio % Glucose (65-100) mg/dL Calcium (8.4-10.2) mg/dL Total Bilirubin (0.1-1.2) mg/dL AST (5-40) units/L ALT (7-56) units/L Alkaline Phosphatase (35-129) units/L Total Protein (6.3-8.2) g/dL Albumin (3.9-5) g/dL Albumin/Globulin Ratio % Urine Color Yellow (Yellow) Urine Turbidity Clear (Clear) Urine pH 6.0 (5.0-7.0) Ur Specific [place] 1.023 (1.003-1.030) Urine Protein <15 mg/dl (Negative) mg/dL Urine Glucose (UA) Neg (Negative) mg/dL Urine Ketones Neg (Negative) mg/dL Urine Blood Neg (Negative) Urine Nitrite Neg (Negative) Urine Bilirubin Neg (Negative) Urine Urobilinogen 4.0 (<2.0) mg/dL Ur Leukocyte Esterase Neg (Negative) Urine WBC (Auto) 1.0 (0.0-6.0) /HPF Urine RBC (Auto) 5.0 (0.0-6.0) /HPF U Epithel Cells (Auto) 7.0 (0-13.0) /HPF Urine Mucus 3+ /HPF - Radiology Data Ultrasound so ultrasound shows that the patient has symptoms small cystic structures under the skin in the bilateral anterior thighs. Etiology is unknown. - Medical Decision Making Patient be discharged home. Patient to use a warm compress and followed her primary care physician regarding the cyst.` Critical care attestation.: If time is entered above; I have spent that time in minutes in the direct care of this critically ill patient, excluding procedure time. ED Disposition Clinical Impression: Cyst of skin and subcutaneous tissue Disposition: DC-01 TO HOME OR SELFCARE Is pt being admited?: No Does the pt Need Aspirin: No Condition: Stable Time of Disposition: 17:06
[2018-11-09 17:19] VITALS: BP 127/58
--- NOTE | 2018-11-09 17:56 | Vascular Lab Report ---
FINAL REPORT EXAM: VL VENOUS DUPLEX LE BILAT HISTORY: swelling after surgery TECHNIQUE: Ultrasound examination of the right lower extremity venous system Ultrasound examination of the left lower extremity venous system PRIORS: None. FINDINGS: Right leg: Normal compressibility, vascular patency, and augmentation are present diffusely throughout the visua lized portion of the deep veins of the right leg. No abnormal intraluminal echoes are visualized to suggest thrombus. Small nonspecific nonvascular cystic appearing structure in right mid thigh. It roxana sures approximately 2 mm and is approximately 5 mm deep to the skin surface. Left leg: Normal compressibility, vascular patency, and augmentation are present diffusely throughout the visua lized portion of the deep veins of the left leg. No abnormal intraluminal echoes are visualized to s uggest thrombus. Small nonspecific superficial nonvascular cystic appearing structure in left mid lat eral thigh measuring 6 mm approximately 6 mm deep to the skin surface. IMPRESSION: No sonographic evidence of DVT in the right leg No sonographic evidence of DVT in the left leg Nonspecific superficial cystic appearing small structures in the thigh region bilaterally. These may be small cysts or hematomas. Differential includes areas of inflammation or infection but there is no associated hyperemia
== END 2018-11-09 17:19 | disposition home or self-care (01) ==
LOC: ED 13:00
DX: L72.9 Follicular cyst of the skin and subcutaneous tissue, unspecified (principal); G43.909 Migraine, unspecified, not intractable, without status migrainosus; F41.9 Anxiety disorder, unspecified; Z98.51 Tubal ligation status; Z88.5 Allergy status to narcotic agent
CPT/HCPCS: 36415; 80053; 81001; 85025; 85610; 93970; 99284